=== PATIENT | female | born 1970 | race Caucasian/White ===

== ENCOUNTER 2019-07-31 14:33 | Emergency (ER) | payer MEDICAID ==
[~2019-07-31] VITALS: Ht 177.8 cm; Wt 130.0 kg
[~2019-07-31 14:33] MED LIST: BACL20TA PO; CALC-793 PO; FLUO20CA39 PO; FOLI-91 PO; FURO40TA4 PO; GABA-532 PO; GLIM4TAB4 PO; LISI-600 PO; LOVA20TA2 PO; METF500T PO; METO50TA7 PO; PANT40TA4 PO; TRAM50TA2 PO
[2019-07-31 14:37] VITALS: BP 137/73
[2019-07-31 15:25] LABS: BASOPHILS % (AUTO) 0.3 % (0-1); EOSINOPHILS # (AUTO) 0.1 X10'3 (0-0.9); EOSINOPHILS % (AUTO) 0.4 % (0-6); HEMATOCRIT 36.5 % (35.0-45.0); HEMOGLOBIN 11.6 g/dl (12.0-16.0); LYMPHOCYTES # (AUTO) 1.3 X10'3 (1.1-4.8); LYMPHOCYTES % (AUTO) 9.7 % (21-51); MEAN CORPUSCULAR HGB CONC 31.9 g/dL (33.0-36.5); MEAN CORPUSCULAR VOLUME 87.8 FL (78-98); MEAN PLATELET VOLUME 8.8 FL (7.4-10.4); MONOCYTES % (AUTO) 7.8 % (2-12); NEUTROPHILS # (AUTO) 10.6 X10'3 (1.8-7.7); NEUTROPHILS % (AUTO) 81.8 % (42-75); PLATELET COUNT 202 X10'3 (140-440); RED BLOOD COUNT 4.16 X10'6 (4.20-5.60); RED CELL DISTRIBUTION WIDTH 16.2 % (11.5-14.5)
[2019-07-31 15:40] LABS: ALANINE AMINOTRANSFERASE 19 U/L (12-78); ALBUMIN 2.5 G/DL (3.4-5.0); ALBUMIN/GLOBULIN RATIO 0.5 (1.1-1.5); ALKALINE PHOSPHATASE 109 IU/L (46-116); ANION GAP 11 (8-16); ASPARTATE AMINO TRANSFERASE 20 U/L (10-37); BILIRUBIN,TOTAL 0.7 MG/DL (0.1-1.0); BLOOD UREA NITROGEN 20 MG/DL (7-18); CALCIUM 8.5 MG/DL (8.5-10.1); CHLORIDE 98 MMOL/L (99-107); CREATININE 0.91 MG/DL (0.40-0.90); GLUCOSE 120 MG/DL (70-104); POTASSIUM 3.8 MMOL/L (3.5-5.1); SODIUM 135 MMOL/L (135-145); TOTAL CARBON DIOXIDE 26.5 MMOL/L (24-32); TOTAL PROTEIN 7.2 G/DL (6.4-8.2); eGFR 66 ML/MIN
[2019-07-31] MEDS ORDERED: CEPH500C5 PO (16:03)
[2019-07-31] MEDS ORDERED: SULF1TAB49 PO (16:03)
[2019-07-31] MEDS ORDERED: CefTRIAXone 2gm/D5W 50ml 50 ML IV ONE (16:05)
[2019-07-31] MEDS ORDERED: CefTRIAXone 1000mg IM Kit (w/lidocaine diluent) IM ONE (16:25)
== END 2019-07-31 17:18 | disposition home or self-care (01) ==
LOC: ER 14:34
DX: L03.116 Cellulitis of left lower limb (principal); E78.00 Pure hypercholesterolemia, unspecified; J44.9 Chronic obstructive pulmonary disease, unspecified; E11.9 Type 2 diabetes mellitus without complications; I11.0 Hypertensive heart disease with heart failure; I50.9 Heart failure, unspecified; Z98.890 Other specified postprocedural states; Z56.0 Unemployment, unspecified; Z88.0 Allergy status to penicillin; Z88.5 Allergy status to narcotic agent; Z79.899 Other long term (current) drug therapy
CPT/HCPCS: 36415; 71045; 80053; 83605; 84145; 85025; 87040; 93005; 93971; 96372; 99284; J0696

== ENCOUNTER 2019-08-17 14:34 | Emergency (ER) | payer MEDICAID ==
[~2019-08-17] VITALS: Ht 177.8 cm; Wt 13.0 kg
[~2019-08-17 14:34] MED LIST changes: +CEPH500C5 PO
--- NOTE | 2019-08-17 17:53 | NUR ---
ultrasound techs at the bedside at this time
[2019-08-17] MEDS ORDERED: DOXY100C43 PO (19:07)
[2019-08-17] MEDS ORDERED: CEPH500C5 PO (19:07)
[2019-08-17 19:28] VITALS: BP 107/82
== END 2019-08-17 19:34 | disposition home or self-care (01) ==
LOC: ER 14:34
DX: L03.116 Cellulitis of left lower limb (principal); E78.00 Pure hypercholesterolemia, unspecified; I11.0 Hypertensive heart disease with heart failure; I50.9 Heart failure, unspecified; J44.9 Chronic obstructive pulmonary disease, unspecified; F17.210 Nicotine dependence, cigarettes, uncomplicated; E11.40 Type 2 diabetes mellitus with diabetic neuropathy, unspecified; Z56.0 Unemployment, unspecified; Z98.890 Other specified postprocedural states; Z88.0 Allergy status to penicillin; Z88.5 Allergy status to narcotic agent; Z79.899 Other long term (current) drug therapy
CPT/HCPCS: 93922; 93926; 99284

== ENCOUNTER 2021-09-04 15:45 | Emergency (ER) | payer MEDICAID ==
[~2021-09-04] VITALS: Ht 177.8 cm; Wt 145.0 kg
[~2021-09-04 15:45] MED LIST changes: -CEPH500C5 PO; -GLIM4TAB4 PO; +GLIM4TAB7 PO; -LISI-600 PO; +LISI20TA28 PO; -PANT40TA4 PO; +PANT40TA54 PO
[2021-09-04] MEDS ORDERED: methylPREDNISolone sod succ 125mg/2ml vial IV ONE (15:55)
[2021-09-04] MEDS ORDERED: ipratropium/albuterol 3ml nebule NEB ONE (15:55)
[2021-09-04 16:47] LABS: BASOPHILS # (AUTO) 0.1 X10'3 (0-0.2); EOSINOPHILS # (AUTO) 0.1 X10'3 (0-0.9); LYMPHOCYTES # (AUTO) 1.2 X10'3 (1.1-4.8); LYMPHOCYTES % (AUTO) 17.4 % (21-51); MEAN PLATELET VOLUME 8.4 FL (7.4-10.4); MONOCYTES # (AUTO) 0.4 X10'3 (0-0.9); MONOCYTES % (AUTO) 5.7 % (2-12); NEUTROPHILS # (AUTO) 5.4 X10'3 (1.8-7.7); NEUTROPHILS % (AUTO) 74.9 % (42-75); PLATELET COUNT 190 X10'3 (140-440); WHITE BLOOD COUNT 7.2 X10'3 (4.5-11.0)
[2021-09-04 17:05] LABS: ALANINE AMINOTRANSFERASE 22 U/L (12-78); ALBUMIN/GLOBULIN RATIO 0.8 (1.1-1.5); ALKALINE PHOSPHATASE 94 IU/L (46-116); ANION GAP 4 (8-16); ASPARTATE AMINO TRANSFERASE 17 U/L (10-37); BILIRUBIN,TOTAL 0.5 MG/DL (0.1-1.0); BLOOD UREA NITROGEN 16 MG/DL (7-18); BUN/CREATININE RATIO 25.4 (6.6-38.0); CALCIUM 8.1 MG/DL (8.5-10.1); CHLORIDE 102 MMOL/L (99-107); CREATININE 0.63 MG/DL (0.40-0.90); GLUCOSE 123 MG/DL (70-104); POTASSIUM 4.8 MMOL/L (3.5-5.1); SODIUM 137 MMOL/L (135-145); TOTAL CARBON DIOXIDE 31.5 MMOL/L (24-32); TOTAL PROTEIN 6.8 G/DL (6.4-8.2); eGFR > 90 ML/MIN
[2021-09-04 17:29] LABS: HEMATOCRIT 33.5 % (35.0-45.0); HEMOGLOBIN 10.5 g/dl (12.0-16.0); RED BLOOD COUNT 4.72 X10'6 (4.20-5.60)
[2021-09-04 17:30] LABS: MEAN CORPUSCULAR HEMOGLOBIN 22.3 PG (27.0-31.0); MEAN CORPUSCULAR HGB CONC 31.4 g/dL (33.0-36.5); RED CELL DISTRIBUTION WIDTH 19.5 % (11.5-14.5)
[2021-09-04] MEDS ORDERED: furosemide 10 MG/1 ML 10ml inj IV ONE (17:35)
[2021-09-04] MEDS ORDERED: PRED10TA23 PO (17:39)
[2021-09-04] MEDS ORDERED: ALBU6.7H9 INH (17:39)
[2021-09-04] MEDS ORDERED: BUDE180A INH (17:39)
[2021-09-04] MEDS ORDERED: POTA-188 PO (17:57)
[2021-09-04] MEDS ORDERED: FURO-150 PO (17:57)
[2021-09-04] MEDS ORDERED: furosemide 20MG tablet PO ONE (18:00)
[2021-09-04 18:07] VITALS: BP 156/75
[2021-09-04 19:45] LABS: LARGE PLATELETS FEW; PLATELET ESTIMATE NORMAL
[2021-09-04 19:46] LABS: ANISOCYTOSIS 2+; MICROCYTOSIS 1+; POLYCHROMASIA 1+; STOMATOCYTES 1+
== END 2021-09-04 18:10 | disposition home or self-care (01) ==
LOC: ER 15:45
DX: J44.1 Chronic obstructive pulmonary disease with (acute) exacerbation (principal); I50.9 Heart failure, unspecified; I11.0 Hypertensive heart disease with heart failure; R06.02 Shortness of breath; M79.89 Other specified soft tissue disorders; E11.9 Type 2 diabetes mellitus without complications; Z56.0 Unemployment, unspecified; Z98.890 Other specified postprocedural states; Z88.5 Allergy status to narcotic agent; Z88.0 Allergy status to penicillin; Z79.899 Other long term (current) drug therapy
CPT/HCPCS: 36415; 71045; 80053; 83880; 85008; 85025; 93005; 94640; 96374; 99285; J2930; 94760

== ENCOUNTER 2021-10-17 15:44 | Inpatient (IN) | payer MEDICAID ==
[~2021-10-17] VITALS: Ht 180.3 cm; Wt 152.3 kg
[~2021-10-17 15:44] MED LIST changes: +ALBU6.7H9 INH; +BUDE180A INH
[2021-10-17 17:02] LABS: BASOPHILS # (AUTO) 0.1 X10'3 (0-0.2); BASOPHILS % (AUTO) 1.3 % (0-1); EOSINOPHILS # (AUTO) 0.1 X10'3 (0-0.9); EOSINOPHILS % (AUTO) 1.1 % (0-6); HEMATOCRIT 39.2 % (35.0-45.0); HEMOGLOBIN 11.6 g/dl (12.0-16.0); LYMPHOCYTES # (AUTO) 0.9 X10'3 (1.1-4.8); LYMPHOCYTES % (AUTO) 11.2 % (21-51); MEAN CORPUSCULAR HEMOGLOBIN 21.8 PG (27.0-31.0); MEAN CORPUSCULAR HGB CONC 29.5 g/dL (33.0-36.5); MEAN CORPUSCULAR VOLUME 73.9 FL (78-98); MEAN PLATELET VOLUME 8.7 FL (7.4-10.4); MONOCYTES # (AUTO) 0.4 X10'3 (0-0.9); MONOCYTES % (AUTO) 5.1 % (2-12); NEUTROPHILS # (AUTO) 6.5 X10'3 (1.8-7.7); NEUTROPHILS % (AUTO) 81.3 % (42-75); PLATELET COUNT 226 X10'3 (140-440); RED BLOOD COUNT 5.31 X10'6 (4.20-5.60)
[2021-10-17 17:18] LABS: ALANINE AMINOTRANSFERASE 26 U/L (12-78); ALBUMIN 3.5 G/DL (3.4-5.0); ALKALINE PHOSPHATASE 109 IU/L (46-116); ANION GAP 6 (8-16); ASPARTATE AMINO TRANSFERASE 15 U/L (10-37); BILIRUBIN,TOTAL 0.6 MG/DL (0.1-1.0); BLOOD UREA NITROGEN 8 MG/DL (7-18); BUN/CREATININE RATIO 11.1 (6.6-38.0); CALCIUM 8.6 MG/DL (8.5-10.1); CHLORIDE 100 MMOL/L (99-107); CREATININE 0.72 MG/DL (0.40-0.90); GLUCOSE 119 MG/DL (70-104); POTASSIUM 4.4 MMOL/L (3.5-5.1); SODIUM 138 MMOL/L (135-145); TOTAL CARBON DIOXIDE 31.9 MMOL/L (24-32); eGFR 86 ML/MIN
[2021-10-17 17:24] LABS: ANISOCYTOSIS 3+; ELLIPTOCYTES FEW; HYPOCHROMASIA 1+; MICROCYTOSIS 1+; PLATELET ESTIMATE NORMAL; POLYCHROMASIA 1+; TEAR DROP CELLS FEW
[2021-10-17] MEDS ORDERED: methylPREDNISolone sod succ 125mg/2ml vial IV ONE (23:30)
[2021-10-17] MEDS ORDERED: furosemide 40mg/4ml inj IV ONE (23:30)
[2021-10-17] MEDS ORDERED: ipratropium/albuterol 3ml nebule NEB ONE (23:30)
[2021-10-18] MEDS ORDERED: magnesium hydroxide 30ml (MOM) UD suspension PO PRN (03:50)
[2021-10-18] MEDS ORDERED: mag hydrox/Alum hydrox/simeth 30ml oral suspension PO PRN (03:50)
[2021-10-18] MEDS ORDERED: PERFLUTREN PROTEIN-A MICROSPHR (Optison) 0.22 MG/ML 3ML VIAL IV ONE (03:50)
[2021-10-18] MEDS ORDERED: magnesium 2GM in 50ml NS 50 ML IV PRN (03:50)
[2021-10-18] MEDS ORDERED: potassium CL 10mEq/100ml bag 100 ML IV PRN (03:50)
[2021-10-18] MEDS ORDERED: acetaminophen 325mg tablet PO PRN (03:50)
[2021-10-18] MEDS ORDERED: ondansetron/PF 4mg/2ml inj IV PRN (03:50)
[2021-10-18] MEDS ORDERED: magnesium 4gm in 100ml NS 100 ML IV PRN (03:50)
[2021-10-18] MEDS ORDERED: potassium Cl 20 mEq SR tablet PO PRN ×2 (03:50)
[2021-10-18] MEDS ORDERED: magnesium Cl slow-release 64mg tablet PO PRN (03:50)
[2021-10-18] MEDS ORDERED: POTA-188 PO (03:51)
[2021-10-18] MEDS ORDERED: DULO30CA52 PO (03:51)
[2021-10-18] MEDS ORDERED: FAMO20TA8 PO (03:51)
[2021-10-18] MEDS ORDERED: PREG100C55 PO (03:51)
[2021-10-18] MEDS ORDERED: ATOR20TA66 PO (03:51)
[2021-10-18] MEDS ORDERED: MESSAGE TO PHARMACY PO ONE (03:55)
[2021-10-18] MEDS ORDERED: glucagon, human recombinant 1mg kit SUBCUT PRN (03:55)
[2021-10-18] MEDS ORDERED: insulin Lispro (HumaLOG) vial - multi-dose SQ SCH (03:55)
[2021-10-18] MEDS ORDERED: dextrose ORAL solution 15 GM/59 ML bottle PO PRN ×2 (03:55)
[2021-10-18] MEDS ORDERED: dextrose 50%-water 50ml dispensing syringe IV PRN ×2 (03:55)
[2021-10-18] MEDS ORDERED: ALBU8.5H17 IH (03:58)
--- NOTE | 2021-10-18 06:30 | NUR ---
Report received from INGRID Christianson.
--- NOTE | 2021-10-18 06:40 | NUR ---
Patient assisted from commode to bed.
[2021-10-18] MEDS ORDERED: furosemide 40mg tablet PO SCH (08:00)
[2021-10-18] MEDS ORDERED: lisinopril 20mg tablet PO SCH (08:00)
[2021-10-18] MEDS ORDERED: famotidine 20mg tablet PO SCH (08:00)
[2021-10-18] MEDS: metoprolol succinate 25mg (24-HOUR) SR. Tablet PO SCH (08:55)
[2021-10-18] MEDS: pregabalin 25mg capsule PO SCH ×3 (08:55→20:52)
[2021-10-18] MEDS: docusate sod 100mg capsule PO SCH ×3 (08:55→20:52)
[2021-10-18] MEDS: baclofen 10mg tablet PO SCH ×3 (08:55→20:53)
[2021-10-18] MEDS: duloxetine 30mg CAPSULE.DR PO SCH (08:56)
[2021-10-18] MEDS: multivitamins, therapeutics tablet PO SCH (08:57)
[2021-10-18] MEDS: atorvastatin 20mg tablet PO SCH (08:57)
[2021-10-18] MEDS: heparin, porcine 5000 units/ml vial SQ SCH ×2 (08:57→20:52)
[2021-10-18] MEDS: budesonide 0.5mg/2ml UD nebule IH SCH ×2 (09:18→21:19)
[2021-10-18 09:25] LABS: MAGNESIUM 1.5 MG/DL (1.5-2.4); POTASSIUM 4.4 MMOL/L (3.5-5.1)
[2021-10-18 09:42] LABS: HEMOGLOBIN A1C 7.4 % (4.5-6.2)
[2021-10-18] MEDS: K and/or MAG REPLACEMENT MC SCH ×2 (10:00→20:00)
[2021-10-18] MEDS: furosemide 40mg/4ml inj IV SCH ×2 (10:00→20:51)
--- NOTE | 2021-10-18 11:00 | NUR ---
Assisted patient to bedside commode.
--- NOTE | 2021-10-18 12:50 | NUR ---
Patient assisted to bedside commode.
--- NOTE | 2021-10-18 15:41 | NUR ---
Patient in room ED 14. I have received report from armin QUINTERO at the ED and had the opportunity to ask questions and assume patient care.
[2021-10-18 20:00] VITALS: BP 145/65
[2021-10-18] MEDS ORDERED: insulin glargine (Lantus) pen - multi-dose SQ SCH (21:00)
[2021-10-18] MEDS: albuterol 2.5 MG/3 ML nebule NEB PRN (21:19)
[2021-10-19] VITALS: BP 123/59
[2021-10-19 06:19] LABS: BASOPHILS % (AUTO) 0.4 % (0-1); EOSINOPHILS % (AUTO) 0.6 % (0-6); HEMOGLOBIN 10.5 g/dl (12.0-16.0); LYMPHOCYTES # (AUTO) 1.3 X10'3 (1.1-4.8); LYMPHOCYTES % (AUTO) 18.5 % (21-51); MEAN CORPUSCULAR HEMOGLOBIN 21.9 PG (27.0-31.0); MEAN CORPUSCULAR HGB CONC 30.1 g/dL (33.0-36.5); MEAN CORPUSCULAR VOLUME 72.8 FL (78-98); MEAN PLATELET VOLUME 8.4 FL (7.4-10.4); MONOCYTES # (AUTO) 0.6 X10'3 (0-0.9); MONOCYTES % (AUTO) 8.4 % (2-12); NEUTROPHILS # (AUTO) 5.2 X10'3 (1.8-7.7); NEUTROPHILS % (AUTO) 72.1 % (42-75); PLATELET COUNT 215 X10'3 (140-440); RED CELL DISTRIBUTION WIDTH 20.9 % (11.5-14.5); WHITE BLOOD COUNT 7.3 X10'3 (4.5-11.0)
[2021-10-19 06:25] LABS: ALANINE AMINOTRANSFERASE 19 U/L (12-78); ALKALINE PHOSPHATASE 89 IU/L (46-116); ANION GAP 4 (8-16); ASPARTATE AMINO TRANSFERASE 12 U/L (10-37); BILIRUBIN,TOTAL 0.5 MG/DL (0.1-1.0); BLOOD UREA NITROGEN 16 MG/DL (7-18); CALCIUM 8.4 MG/DL (8.5-10.1); CHLORIDE 100 MMOL/L (99-107); CHOL/HDL RATIO 2.9 (0.00-4.99); CHOLESTEROL 129 MG/DL (0-200); GLUCOSE 135 MG/DL (70-104); HDL CHOLESTEROL 45 MG/DL (35-60); LDL CHOLESTEROL 62 MG/DL (50-100); POTASSIUM 3.2 MMOL/L (3.5-5.1); SODIUM 141 MMOL/L (135-145); TOTAL CARBON DIOXIDE 36.8 MMOL/L (24-32); TRIGLYCERIDES 132 MG/DL (20-135); eGFR 76 ML/MIN
--- NOTE | 2021-10-19 06:50 | NUR ---
Patient in room [facility]OM[facility] 360. I have received report from Flora RN Traveler and had the opportunity to ask questions and assume patient care.
[2021-10-19] MEDS: budesonide 0.5mg/2ml UD nebule IH SCH (07:58)
[2021-10-19] MEDS: albuterol 2.5 MG/3 ML nebule NEB PRN (07:58)
[2021-10-19 08:00] VITALS: BP 127/53
[2021-10-19] MEDS: furosemide 40mg/4ml inj IV SCH (08:44)
[2021-10-19] MEDS: duloxetine 30mg CAPSULE.DR PO SCH (08:45)
[2021-10-19] MEDS: atorvastatin 20mg tablet PO SCH (08:45)
[2021-10-19] MEDS: baclofen 10mg tablet PO SCH ×2 (08:45→14:54)
[2021-10-19] MEDS: multivitamins, therapeutics tablet PO SCH (08:45)
[2021-10-19] MEDS: pregabalin 25mg capsule PO SCH ×2 (08:45→14:55)
[2021-10-19] MEDS: metoprolol succinate 25mg (24-HOUR) SR. Tablet PO SCH (08:46)
[2021-10-19] MEDS: heparin, porcine 5000 units/ml vial SQ SCH (08:46)
[2021-10-19 09:07] LABS: ANISOCYTOSIS 3+; HYPOCHROMASIA 2+; MICROCYTOSIS 1+; PLATELET ESTIMATE NORMAL
[2021-10-19 09:08] LABS: ELLIPTOCYTES FEW; POLYCHROMASIA FEW; STOMATOCYTES FEW; TEAR DROP CELLS FEW
[2021-10-19 11:00] VITALS: BP 102/51
--- NOTE | 2021-10-19 11:43 | NUR ---
Diabetes consult: Noted A1C 7.4 pt states she has been diabetic for a while. Provided pt w/ written and verbal DM ed w/ RD contact info. Pt receptive of information. Addendum: 10/19/21 at [address] Amended: Links added.
[2021-10-19] MEDS ORDERED: FURO40TA4 PO (13:05)
--- NOTE | 2021-10-19 15:15 | NUR ---
Pt is A & o x4 and in no apparent distress. Pt and verbalized understanding of all DC orders. pt educated about her DM and breathing exercises. Pt did not qualify for home O2. her stats are 92-94 in RA. Pt drops to 89 when ambulating but quickly recovers back to the mid 90's. Pt is not symptomatic and does not feel SOB. Pt states she feels ready to go home. Pt's IV cath removed intact. pt got dressed and wheeled to the front where her took her home.
== END 2021-10-19 15:15 | disposition home or self-care (01) | DRG 194 ==
LOC: ER 15:45 → ED HOLD 10-18 03:53 → SUR 3N 10-18 16:20
PROVIDERS: ADMIT Internal Medicine; ATTEND Internal Medicine
DX: I11.0 Hypertensive heart disease with heart failure (principal); E11.40 Type 2 diabetes mellitus with diabetic neuropathy, unspecified; Z79.01 Long term (current) use of anticoagulants; E03.9 Hypothyroidism, unspecified; E66.01 Morbid (severe) obesity due to excess calories; D50.9 Iron deficiency anemia, unspecified; Z20.822 Contact with and (suspected) exposure to COVID-19; I50.813 Acute on chronic right heart failure; E78.00 Pure hypercholesterolemia, unspecified; E78.5 Hyperlipidemia, unspecified; F32.A Depression, unspecified; F41.9 Anxiety disorder, unspecified; G47.33 Obstructive sleep apnea (adult) (pediatric); G89.29 Other chronic pain; K21.9 Gastro-esophageal reflux disease without esophagitis; M54.9 Dorsalgia, unspecified; F17.200 Nicotine dependence, unspecified, uncomplicated; J43.9 Emphysema, unspecified; R09.02 Hypoxemia; Z68.42 Body mass index [BMI] 45.0-49.9, adult; Z79.51 Long term (current) use of inhaled steroids; Z79.84 Long term (current) use of oral hypoglycemic drugs; Z79.899 Other long term (current) drug therapy; Z56.0 Unemployment, unspecified; Z88.0 Allergy status to penicillin; Z88.5 Allergy status to narcotic agent
CPT/HCPCS: 36415; 71045; 80053; 80061; 82948; 83036; 83735; 83880; 84132; 84484; 85008; 85025; 87081; 87635; 93005; 93306; 94640; 94760; 99285; G0378; J1644; J1815; J1940; J2930

== ENCOUNTER 2022-06-18 14:08 | Inpatient (IN) | payer MEDICAID ==
[~2022-06-18] VITALS: Ht 177.8 cm; Wt 134.6 kg
[~2022-06-18 14:08] MED LIST changes: -ALBU6.7H9 INH; +ALBU8.5H17 IH; +ATOR20TA66 PO; -CALC-793 PO; +DULO30CA52 PO; +FAMO20TA8 PO; -FLUO20CA39 PO; -GABA-532 PO; -GLIM4TAB7 PO; -LOVA20TA2 PO; -PANT40TA54 PO; +POTA-188 PO; +PREG100C55 PO; -TRAM50TA2 PO
--- NOTE | 2022-06-18 15:24 | NUR ---
PT PLACED ON 2 LTR NC PER SPO2 78% SPO2 IMPROVED TO 87% ON 2 LTRS TITRATED O2 TO 4 LTRS
[2022-06-18 17:41] LABS: BASOPHILS # (AUTO) 0.1 X10'3 (0-0.2); BASOPHILS % (AUTO) 1.1 % (0-1); EOSINOPHILS # (AUTO) 0.6 X10'3 (0-0.9); EOSINOPHILS % (AUTO) 5.3 % (0-6); LYMPHOCYTES # (AUTO) 1.2 X10'3 (1.1-4.8); LYMPHOCYTES % (AUTO) 11.4 % (21-51); MEAN PLATELET VOLUME 8.5 FL (7.4-10.4); MONOCYTES # (AUTO) 0.7 X10'3 (0-0.9); MONOCYTES % (AUTO) 6.8 % (2-12); NEUTROPHILS # (AUTO) 8.3 X10'3 (1.8-7.7); NEUTROPHILS % (AUTO) 75.4 % (42-75); PLATELET COUNT 206 X10'3 (140-440)
[2022-06-18 18:00] LABS: RED BLOOD COUNT 4.96 X10'6 (4.20-5.60)
[2022-06-18 18:01] LABS: ALANINE AMINOTRANSFERASE 24 U/L (12-78); ALBUMIN 3.1 G/DL (3.4-5.0); ALBUMIN/GLOBULIN RATIO 0.9 (1.1-1.5); ALKALINE PHOSPHATASE 112 IU/L (46-116); ANION GAP 5 (8-16); ASPARTATE AMINO TRANSFERASE 16 U/L (10-37); BILIRUBIN,TOTAL 0.3 MG/DL (0.1-1.0); BLOOD UREA NITROGEN 39 MG/DL (7-18); BUN/CREATININE RATIO 31.2 (6.6-38.0); CALCIUM 8.3 MG/DL (8.5-10.1); CHLORIDE 102 MMOL/L (99-107); CREATININE 1.25 MG/DL (0.40-0.90); GLUCOSE 126 MG/DL (70-104); MEAN CORPUSCULAR HEMOGLOBIN 24.1 PG (27.0-31.0); MEAN CORPUSCULAR HGB CONC 31.5 g/dL (33.0-36.5); MEAN CORPUSCULAR VOLUME 76.6 FL (78-98); POTASSIUM 5.5 MMOL/L (3.5-5.1); RED CELL DISTRIBUTION WIDTH 20.4 % (11.5-14.5); SODIUM 139 MMOL/L (135-145); TOTAL PROTEIN 6.5 G/DL (6.4-8.2); eGFR 45 ML/MIN
[2022-06-18 18:08] LABS: MAGNESIUM 1.9 MG/DL (1.5-2.4)
[2022-06-18] MEDS ORDERED: furosemide 10 MG/1 ML 10ml inj IV ONE (18:20)
[2022-06-18] MEDS ORDERED: acetaminophen 325mg tablet PO PRN ×2 (19:35)
[2022-06-18] MEDS ORDERED: magnesium 2GM in 50ml NS 50 ML IV PRN (19:35)
[2022-06-18] MEDS ORDERED: potassium CL 10mEq/100ml bag 100 ML IV PRN (19:35)
[2022-06-18] MEDS ORDERED: POTASSIUM BICARB 20meq eff tab 20 MEQ TABLET.EFF PO PRN ×2 (19:35)
[2022-06-18] MEDS ORDERED: albuterol 2.5 MG/3 ML nebule NEB PRN (19:35)
[2022-06-18] MEDS ORDERED: magnesium Cl slow-release 64mg tablet PO PRN (19:35)
[2022-06-18] MEDS ORDERED: magnesium 4gm in 100ml NS 100 ML IV PRN (19:35)
[2022-06-18] MEDS ORDERED: ondansetron/PF 4mg/2ml inj IV PRN (19:35)
[2022-06-18] MEDS ORDERED: DEXTROSE 15 GM of carb/4 tabs (each vial/BOTTLE has 4 tablets) PO PRN ×2 (19:40)
[2022-06-18] MEDS ORDERED: dextrose 50%-water 50ml dispensing syringe IV PRN ×2 (19:40)
[2022-06-18] MEDS ORDERED: MESSAGE TO PHARMACY PO ONE (19:40)
[2022-06-18] MEDS ORDERED: glucagon, human recombinant 1mg kit SUBCUT PRN (19:40)
[2022-06-18] MEDS: K and/or MAG REPLACEMENT MC SCH (19:56)
[2022-06-18] MEDS ORDERED: furosemide 40mg/4ml inj IV SCH (20:00)
--- NOTE | 2022-06-18 20:08 | NUR ---
Rafael phone number - [phone]
[2022-06-18] MEDS: heparin, porcine 5000 units/ml vial SQ SCH (20:40)
[2022-06-18] MEDS ORDERED: temazepam 15mg capsule PO PRN (21:00)
[2022-06-18] MEDS: insulin glargine (Lantus) pen - multi-dose SQ SCH (21:00)
[2022-06-18] MEDS ORDERED: sodium polystyrene sulfonate 15gm/60ml oral suspension PO ONE (21:35)
[2022-06-18] MEDS ORDERED: calcium gluconate inj. 1 GM in normal saline 100ml IV soln 100 ML IV ONE (21:35)
--- NOTE | 2022-06-18 22:03 | NUR ---
waiting for calcium gluconate from [facility].
[2022-06-18] MEDS ORDERED: calcium gluconate inj. 1 GM in normal saline 100ml IV soln 90 ML IV ONE (22:05)
[2022-06-19] MEDS ORDERED: furosemide 40mg/4ml inj IV SCH (08:00)
[2022-06-19] MEDS: K and/or MAG REPLACEMENT MC SCH ×2 (08:00→20:00)
[2022-06-19] MEDS: heparin, porcine 5000 units/ml vial SQ SCH ×2 (08:00→20:34)
[2022-06-19 08:43] LABS: BASOPHILS # (AUTO) 0.1 X10'3 (0-0.2); BASOPHILS % (AUTO) 1.1 % (0-1); EOSINOPHILS # (AUTO) 0.6 X10'3 (0-0.9); EOSINOPHILS % (AUTO) 6.2 % (0-6); HEMATOCRIT 40.6 % (35.0-45.0); HEMOGLOBIN 12.1 g/dl (12.0-16.0); LYMPHOCYTES # (AUTO) 1.1 X10'3 (1.1-4.8); LYMPHOCYTES % (AUTO) 11.3 % (21-51); MEAN CORPUSCULAR HEMOGLOBIN 23.4 PG (27.0-31.0); MEAN CORPUSCULAR HGB CONC 29.8 g/dL (33.0-36.5); MEAN CORPUSCULAR VOLUME 78.7 FL (78-98); MEAN PLATELET VOLUME 8.8 FL (7.4-10.4); MONOCYTES # (AUTO) 0.6 X10'3 (0-0.9); MONOCYTES % (AUTO) 6.3 % (2-12); NEUTROPHILS # (AUTO) 7.4 X10'3 (1.8-7.7); NEUTROPHILS % (AUTO) 75.1 % (42-75); PLATELET COUNT 208 X10'3 (140-440); RED BLOOD COUNT 5.16 X10'6 (4.20-5.60); RED CELL DISTRIBUTION WIDTH 21.5 % (11.5-14.5); WHITE BLOOD COUNT 9.8 X10'3 (4.5-11.0)
[2022-06-19] MEDS ORDERED: FURO40TA4 PO (08:45)
[2022-06-19] MEDS ORDERED: BUSP30TA2 PO (08:45)
[2022-06-19] MEDS ORDERED: DESI25TA PO (08:45)
[2022-06-19] MEDS ORDERED: FLUO-100 PO (08:45)
[2022-06-19] MEDS ORDERED: POTA-207 PO (08:45)
[2022-06-19] MEDS ORDERED: LEVO50TA8 PO (08:45)
[2022-06-19] MEDS ORDERED: TIOT18CA3 INH (08:45)
[2022-06-19 09:19] LABS: ALANINE AMINOTRANSFERASE 22 U/L (12-78); ALBUMIN 3.1 G/DL (3.4-5.0); ALBUMIN/GLOBULIN RATIO 0.9 (1.1-1.5); ALKALINE PHOSPHATASE 105 IU/L (46-116); ANION GAP 5 (8-16); ASPARTATE AMINO TRANSFERASE 13 U/L (10-37); BILIRUBIN,TOTAL 0.4 MG/DL (0.1-1.0); BLOOD UREA NITROGEN 32 MG/DL (7-18); BUN/CREATININE RATIO 35.6 (6.6-38.0); CHLORIDE 106 MMOL/L (99-107); GLUCOSE 146 MG/DL (70-104); POTASSIUM 4.7 MMOL/L (3.5-5.1); SODIUM 145 MMOL/L (135-145); TOTAL CARBON DIOXIDE 34.3 MMOL/L (24-32); TOTAL PROTEIN 6.4 G/DL (6.4-8.2); eGFR 66 ML/MIN
[2022-06-19 15:27] VITALS: BP 140/72
--- NOTE | 2022-06-19 16:47 | NUR ---
PAGED DR DEEPTHI CABRAL; PAGER ID: [phone] MESSAGE: DELANEY ZEE. MED REC NEEDS TO BE ADDRESSED. AND I THINK SHE COULD USE SOME NYSTATIN POWDER. THANKS JENNIFER TELE [phone]
[2022-06-19] MEDS ORDERED: albuterol 2.5 MG/3 ML nebule NEB PRN (17:10)
--- NOTE | 2022-06-19 17:30 | NUR ---
Patient in room PCU 3016. I have received report from INGRID Mcguire and had the opportunity to ask questions and assume patient care.
--- NOTE | 2022-06-19 17:39 | NUR ---
Problems reprioritized. Patient report given, questions answered & plan of care reviewed with GURMEET RN.
[2022-06-19 18:00] VITALS: BP 162/81
[2022-06-19] MEDS ORDERED: benzonatate 100mg capsule PO PRN (18:10)
--- NOTE | 2022-06-19 18:40 | NUR ---
Problems reprioritized. Patient report given, questions answered & plan of care reviewed with MONICA Benitez.
[2022-06-19] MEDS ORDERED: benzocaine/menthol oral lozeng 1 EACH BOX MM PRN (19:00)
--- NOTE | 2022-06-19 19:00 | NUR ---
Patient in room PCU 3016. I have received report from Yaneth QUINTERO and had the opportunity to ask questions and assume patient care.
[2022-06-19] MEDS ORDERED: HALLS - SOOTHE MENTHOL 1.8 MG cough drop LOZENGE MM PRN (19:12)
[2022-06-19 19:37] LABS: HEMOGLOBIN A1C 6.9 % (4.5-6.2)
[2022-06-19] MEDS ORDERED: DESIPRAMINE PO SCH (20:00)
[2022-06-19] MEDS: insulin Lispro (HumaLOG) vial - multi-dose SQ SCH (20:28)
[2022-06-19] MEDS: ipratropium/albuterol 3ml nebule IH SCH (20:30)
[2022-06-19] MEDS: busPIRone 15mg tablet PO SCH (20:32)
[2022-06-19] MEDS: pregabalin 75mg capsule PO SCH (20:33)
[2022-06-19] MEDS: famotidine 20mg tablet PO SCH (20:34)
[2022-06-19] MEDS: nystatin 15 GM powder TP SCH (20:34)
[2022-06-19] MEDS: pregabalin 25mg capsule PO SCH (20:36)
[2022-06-19] MEDS ORDERED: nystatin 15 GM powder TP SCH (21:00)
[2022-06-19 22:00] VITALS: BP 96/70
[2022-06-19] MEDS: insulin glargine (Lantus) pen - multi-dose SQ SCH (23:23)
[2022-06-20] MEDS: ipratropium/albuterol 3ml nebule IH SCH ×4 (03:12→19:41)
[2022-06-20 06:00] VITALS: BP 158/81
--- NOTE | 2022-06-20 06:20 | NUR ---
Patient in room PCU 3016. I have received report from MONICA Benitez and had the opportunity to ask questions and assume patient care.
--- NOTE | 2022-06-20 06:30 | NUR ---
Problems reprioritized. Patient report given, questions answered & plan of care reviewed with Yaneth RN.
[2022-06-20 07:44] LABS: BASOPHILS # (AUTO) 0.1 X10'3 (0-0.2); BASOPHILS % (AUTO) 0.9 % (0-1); EOSINOPHILS # (AUTO) 0.3 X10'3 (0-0.9); EOSINOPHILS % (AUTO) 3.1 % (0-6); HEMATOCRIT 37.9 % (35.0-45.0); HEMOGLOBIN 11.1 g/dl (12.0-16.0); LYMPHOCYTES # (AUTO) 0.7 X10'3 (1.1-4.8); LYMPHOCYTES % (AUTO) 9.1 % (21-51); MEAN CORPUSCULAR HGB CONC 29.3 g/dL (33.0-36.5); MEAN CORPUSCULAR VOLUME 78.6 FL (78-98); MEAN PLATELET VOLUME 8.7 FL (7.4-10.4); MONOCYTES # (AUTO) 0.5 X10'3 (0-0.9); MONOCYTES % (AUTO) 6.2 % (2-12); NEUTROPHILS # (AUTO) 6.5 X10'3 (1.8-7.7); NEUTROPHILS % (AUTO) 80.7 % (42-75); PLATELET COUNT 180 X10'3 (140-440); RED BLOOD COUNT 4.83 X10'6 (4.20-5.60); WHITE BLOOD COUNT 8.1 X10'3 (4.5-11.0)
[2022-06-20] MEDS ORDERED: lisinopril 20mg tablet PO SCH (08:00)
[2022-06-20] MEDS: K and/or MAG REPLACEMENT MC SCH ×2 (08:00→20:00)
[2022-06-20 08:14] LABS: ALANINE AMINOTRANSFERASE 18 U/L (12-78); ALBUMIN 2.9 G/DL (3.4-5.0); ALBUMIN/GLOBULIN RATIO 0.9 (1.1-1.5); ALKALINE PHOSPHATASE 98 IU/L (46-116); ANION GAP 8 (8-16); ASPARTATE AMINO TRANSFERASE 13 U/L (10-37); BILIRUBIN,TOTAL 0.5 MG/DL (0.1-1.0); BLOOD UREA NITROGEN 16 MG/DL (7-18); BUN/CREATININE RATIO 28.1 (6.6-38.0); CALCIUM 8.4 MG/DL (8.5-10.1); CHLORIDE 100 MMOL/L (99-107); CREATININE 0.57 MG/DL (0.40-0.90); GLUCOSE 153 MG/DL (70-104); SODIUM 142 MMOL/L (135-145); TOTAL CARBON DIOXIDE 34.4 MMOL/L (24-32); TOTAL PROTEIN 6.1 G/DL (6.4-8.2); eGFR > 90 ML/MIN
--- NOTE | 2022-06-20 10:08 | NUR ---
Malnutrition consult: Pt reports wt loss with decreased appetite per malnutrition risk screen with RN. Unfortunately no reliable wt hx in EMR. Current scaled wt is 197% IBW. Pt on a heart healthy CHO controlled diet, documented with 75% PO intake of first meal. Per EMR pt with no decrease in muscle strength or edema and pt appears well developed well nourished per physician note. Pt currently lacks a minimum of two criteria for malnutrition. Will continue to follow. Addendum: 06/20/22 at [address] Amended: Links added.
[2022-06-20 11:00] VITALS: BP 150/56
[2022-06-20] MEDS: atorvastatin 20mg tablet PO SCH (11:27)
[2022-06-20] MEDS: pregabalin 75mg capsule PO SCH ×3 (11:28→20:22)
[2022-06-20] MEDS: pregabalin 25mg capsule PO SCH ×3 (11:28→20:22)
[2022-06-20] MEDS: furosemide 40mg tablet PO SCH (11:29)
[2022-06-20] MEDS: metoprolol succinate 25mg (24-HOUR) SR. Tablet PO SCH (11:29)
[2022-06-20] MEDS: levoTHYROXINE 25mcg tablet PO SCH (11:29)
[2022-06-20] MEDS: busPIRone 15mg tablet PO SCH ×2 (11:29→20:22)
[2022-06-20] MEDS: famotidine 20mg tablet PO SCH ×2 (11:30→20:22)
[2022-06-20] MEDS: baclofen 10mg tablet PO PRN (11:30)
[2022-06-20] MEDS: duloxetine 30mg CAPSULE.DR PO SCH (11:30)
[2022-06-20] MEDS: nystatin 15 GM powder TP SCH ×2 (11:30→13:39)
[2022-06-20] MEDS: heparin, porcine 5000 units/ml vial SQ SCH ×2 (11:30→20:23)
[2022-06-20 12:04] VITALS: BP 150/56
[2022-06-20] MEDS: insulin Lispro (HumaLOG) vial - multi-dose SQ SCH ×2 (13:44→20:27)
[2022-06-20 15:00] VITALS: BP 128/62
[2022-06-20 18:00] VITALS: BP 134/59
--- NOTE | 2022-06-20 18:40 | NUR ---
Problems reprioritized. Patient report given, questions answered & plan of care reviewed with INGRID Cornejo.
--- NOTE | 2022-06-20 19:18 | NUR ---
Patient in room U 3016. I have received report from INGRID ELVI and had the opportunity to ask questions and assume patient care. Addendum: 06/20/22 at 1918 by Chantal Ureña RN Amended: Links added.
[2022-06-20 20:36] LABS: COLOR,URINE YELLOW (Yellow); GLUCOSE, URINE NEGATIVE (Neg); KETONES,URINE NEGATIVE (Neg); LEUKOCYTE ESTERASE ,URINE NEGATIVE (Neg); NITRITES, URINE NEGATIVE (Neg); OCCULT BLOOD,URINE NEGATIVE (Neg); PH,URINE 5.5 (4.8-8.0); PROTEIN,URINE NEGATIVE (Neg); UROBILINOGEN,URINE 0.2 E.U/dL (0.2-1.0)
[2022-06-20 20:41] LABS: UA COLLECTION TYPE STRAIGHT CATH
[2022-06-20 20:43] LABS: CLARITY,URINE SLIGHTLY CLOUDY (Clear)
[2022-06-20 20:45] LABS: URINE AMPHETAMINE SCREEN NEGATIVE (Neg); URINE BARBITUATE SCREEN NEGATIVE (Neg); URINE BENZODIAZEPINES SCREEN POSITIVE (Neg); URINE CANNABINOID SCREEN NEGATIVE (Neg); URINE COCAINE SCREEN NEGATIVE (Neg); URINE METHADONE SCREEN NEGATIVE (Neg); URINE OPIATE SCREEN POSITIVE (Neg); URINE PHENCYCLIDINE SCREEN NEGATIVE (Neg)
[2022-06-20 20:46] LABS: BACTERIA,URINE 1+ /HPF (Neg); RBC,URINE NONE SEEN /HPF (0-2); WBC,URINE 0-4 /HPF (0-4)
[2022-06-20 20:47] LABS: AMORPHOUS URATES 1+; MUCUS STRANDS FEW /LPF (Neg); SQUAMOUS EPITHELIAL CELL,UR MANY /LPF (FEW)
[2022-06-20] MEDS: insulin glargine (Lantus) pen - multi-dose SQ SCH (21:56)
[2022-06-20 22:00] VITALS: BP 120/60
[2022-06-21 02:00] VITALS: BP 124/53
[2022-06-21] MEDS: ipratropium/albuterol 3ml nebule IH SCH ×4 (02:31→20:35)
[2022-06-21 06:00] VITALS: BP 145/49
--- NOTE | 2022-06-21 06:30 | NUR ---
Patient in room PCU 3016. I have received report from INGRID Cornejo and had the opportunity to ask questions and assume patient care.
--- NOTE | 2022-06-21 06:49 | NUR ---
Problems reprioritized. Patient report given, questions answered & plan of care reviewed with INGRID LEVI. Addendum: 06/21/22 at 0650 by Chantal Ureña RN Amended: Links added.
[2022-06-21] MEDS: duloxetine 30mg CAPSULE.DR PO SCH (09:02)
[2022-06-21] MEDS: atorvastatin 20mg tablet PO SCH (09:02)
[2022-06-21] MEDS: pregabalin 75mg capsule PO SCH ×3 (09:02→21:22)
[2022-06-21] MEDS: pregabalin 25mg capsule PO SCH ×3 (09:02→21:22)
[2022-06-21] MEDS: furosemide 40mg tablet PO SCH (09:02)
[2022-06-21] MEDS: famotidine 20mg tablet PO SCH ×2 (09:03→19:58)
[2022-06-21] MEDS: baclofen 10mg tablet PO PRN ×2 (09:03→18:12)
[2022-06-21] MEDS: metoprolol succinate 25mg (24-HOUR) SR. Tablet PO SCH (09:03)
[2022-06-21] MEDS: busPIRone 15mg tablet PO SCH ×2 (09:03→19:58)
[2022-06-21] MEDS: levoTHYROXINE 25mcg tablet PO SCH (09:05)
[2022-06-21] MEDS: heparin, porcine 5000 units/ml vial SQ SCH ×2 (09:07→19:57)
[2022-06-21] MEDS: nystatin 15 GM powder TP SCH ×2 (09:07→19:56)
[2022-06-21 09:08] LABS: BASOPHILS # (AUTO) 0.1 X10'3 (0-0.2); BASOPHILS % (AUTO) 1.1 % (0-1); EOSINOPHILS # (AUTO) 0.3 X10'3 (0-0.9); EOSINOPHILS % (AUTO) 4.3 % (0-6); HEMOGLOBIN 11.7 g/dl (12.0-16.0); LYMPHOCYTES # (AUTO) 1.5 X10'3 (1.1-4.8); LYMPHOCYTES % (AUTO) 18.2 % (21-51); MEAN PLATELET VOLUME 8.5 FL (7.4-10.4); MONOCYTES # (AUTO) 0.5 X10'3 (0-0.9); MONOCYTES % (AUTO) 6.5 % (2-12); NEUTROPHILS # (AUTO) 5.7 X10'3 (1.8-7.7); NEUTROPHILS % (AUTO) 69.9 % (42-75); PLATELET COUNT 198 X10'3 (140-440); WHITE BLOOD COUNT 8.1 X10'3 (4.5-11.0)
[2022-06-21 09:22] LABS: ALANINE AMINOTRANSFERASE 16 U/L (12-78); ALBUMIN/GLOBULIN RATIO 0.9 (1.1-1.5); ALKALINE PHOSPHATASE 97 IU/L (46-116); ANION GAP 7 (8-16); ASPARTATE AMINO TRANSFERASE 15 U/L (10-37); BILIRUBIN,TOTAL 0.5 MG/DL (0.1-1.0); BLOOD UREA NITROGEN 10 MG/DL (7-18); BUN/CREATININE RATIO 17.2 (6.6-38.0); CALCIUM 8.5 MG/DL (8.5-10.1); CHLORIDE 99 MMOL/L (99-107); CREATININE 0.58 MG/DL (0.40-0.90); GLUCOSE 118 MG/DL (70-104); POTASSIUM 4.2 MMOL/L (3.5-5.1); SODIUM 141 MMOL/L (135-145); TOTAL CARBON DIOXIDE 34.9 MMOL/L (24-32); TOTAL PROTEIN 6.3 G/DL (6.4-8.2); eGFR > 90 ML/MIN
[2022-06-21] MEDS: K and/or MAG REPLACEMENT MC SCH ×2 (09:35→20:00)
[2022-06-21 09:56] LABS: HEMATOCRIT 37.8 % (35.0-45.0); MEAN CORPUSCULAR VOLUME 76.5 FL (78-98); RED BLOOD COUNT 4.94 X10'6 (4.20-5.60)
[2022-06-21 09:57] LABS: MEAN CORPUSCULAR HEMOGLOBIN 23.6 PG (27.0-31.0); MEAN CORPUSCULAR HGB CONC 30.9 g/dL (33.0-36.5); RED CELL DISTRIBUTION WIDTH 20.6 % (11.5-14.5)
[2022-06-21] MEDS: insulin Lispro (HumaLOG) vial - multi-dose SQ SCH ×3 (10:29→19:55)
[2022-06-21 10:34] LABS: ANISOCYTOSIS 3+; ELLIPTOCYTES FEW; HYPOCHROMASIA 1+; MICROCYTOSIS 1+; PLATELET ESTIMATE NORMAL; POLYCHROMASIA FEW; STOMATOCYTES FEW; TEAR DROP CELLS FEW
[2022-06-21 11:00] VITALS: BP 140/74
[2022-06-21 15:00] VITALS: BP 129/59
[2022-06-21 18:00] VITALS: BP 141/59
--- NOTE | 2022-06-21 18:39 | NUR ---
Patient in room U 3016. I have received report from INGRID LEVI and had the opportunity to ask questions and assume patient care. Addendum: 06/21/22 at 1840 by Chantal Ureña RN Amended: Links added.
--- NOTE | 2022-06-21 18:40 | NUR ---
Problems reprioritized. Patient report given, questions answered & plan of care reviewed with INGRID Cornejo.
[2022-06-21] MEDS: insulin glargine (Lantus) pen - multi-dose SQ SCH (21:29)
[2022-06-21 22:07] VITALS: BP 148/67
[2022-06-22 02:00] VITALS: BP 140/69
--- NOTE | 2022-06-22 06:22 | NUR ---
Problems reprioritized. Patient report given, questions answered & plan of care reviewed with Norm Hutchison. Addendum: 06/22/22 at 0623 by Chantal Ureña RN Amended: Links added.
[2022-06-22 06:51] LABS: BASOPHILS # (AUTO) 0.1 X10'3 (0-0.2); EOSINOPHILS # (AUTO) 0.3 X10'3 (0-0.9); EOSINOPHILS % (AUTO) 3.9 % (0-6); HEMOGLOBIN 11.6 g/dl (12.0-16.0); LYMPHOCYTES # (AUTO) 1.3 X10'3 (1.1-4.8); LYMPHOCYTES % (AUTO) 15.2 % (21-51); MEAN PLATELET VOLUME 8.6 FL (7.4-10.4); MONOCYTES # (AUTO) 0.7 X10'3 (0-0.9); MONOCYTES % (AUTO) 8.2 % (2-12); NEUTROPHILS % (AUTO) 71.7 % (42-75); PLATELET COUNT 189 X10'3 (140-440); RED BLOOD COUNT 5.11 X10'6 (4.20-5.60); WHITE BLOOD COUNT 8.4 X10'3 (4.5-11.0)
[2022-06-22 07:08] LABS: ALANINE AMINOTRANSFERASE 17 U/L (12-78); ALBUMIN/GLOBULIN RATIO 0.9 (1.1-1.5); ALKALINE PHOSPHATASE 92 IU/L (46-116); ANION GAP 2 (8-16); ASPARTATE AMINO TRANSFERASE 15 U/L (10-37); BILIRUBIN,TOTAL 0.6 MG/DL (0.1-1.0); BLOOD UREA NITROGEN 11 MG/DL (7-18); BUN/CREATININE RATIO 18.3 (6.6-38.0); CALCIUM 8.2 MG/DL (8.5-10.1); CHLORIDE 101 MMOL/L (99-107); GLUCOSE 109 MG/DL (70-104); POTASSIUM 4.1 MMOL/L (3.5-5.1); SODIUM 139 MMOL/L (135-145); TOTAL CARBON DIOXIDE 36.1 MMOL/L (24-32); TOTAL PROTEIN 6.2 G/DL (6.4-8.2); eGFR > 90 ML/MIN
[2022-06-22 07:40] VITALS: BP 130/69
[2022-06-22 07:50] LABS: MEAN CORPUSCULAR HEMOGLOBIN 23.6 PG (27.0-31.0)
[2022-06-22 07:51] LABS: MEAN CORPUSCULAR HGB CONC 31.4 g/dL (33.0-36.5)
[2022-06-22] MEDS: nystatin 15 GM powder TP SCH (08:00)
[2022-06-22] MEDS: K and/or MAG REPLACEMENT MC SCH (08:00)
[2022-06-22] MEDS: ipratropium/albuterol 3ml nebule IH SCH ×2 (08:24→15:00)
[2022-06-22] MEDS: pregabalin 75mg capsule PO SCH ×2 (09:08→13:09)
[2022-06-22] MEDS: levoTHYROXINE 25mcg tablet PO SCH (09:09)
[2022-06-22] MEDS: famotidine 20mg tablet PO SCH (09:09)
[2022-06-22] MEDS: pregabalin 25mg capsule PO SCH ×2 (09:09→13:10)
[2022-06-22] MEDS: furosemide 40mg tablet PO SCH (09:09)
[2022-06-22] MEDS: duloxetine 30mg CAPSULE.DR PO SCH (09:09)
[2022-06-22] MEDS: metoprolol succinate 25mg (24-HOUR) SR. Tablet PO SCH (09:09)
[2022-06-22] MEDS: busPIRone 15mg tablet PO SCH (09:09)
[2022-06-22] MEDS: atorvastatin 20mg tablet PO SCH (09:09)
[2022-06-22] MEDS: heparin, porcine 5000 units/ml vial SQ SCH (09:10)
--- NOTE | 2022-06-22 09:11 | NUR ---
Initial: Pt admitted w/ acute on chronic systolic CHF per EMR. Currently on Carb control/Heart Healthy diet w/ mostly 100% intake of meals recently likely close to meeting est needs at this time. LBM 06/20. Will continue to monitor and make recommendations as appropriate. Recs; 1. Continue Carb control/Heart healthy diet as tolerated 2. Double protein WB for satiety 3. Bowel care per rx 4. Weekly wts Addendum: 06/22/22 at [address] Amended: Links added.
[2022-06-22] MEDS: insulin Lispro (HumaLOG) vial - multi-dose SQ SCH (09:15)
--- NOTE | 2022-06-22 10:30 | NUR ---
PAGER ID: [phone] MESSAGE: [phone] Lyubov Lan: patient does not qualify for home o2. saturation stayed >90% while ambulating. thanks, kateryna [id number]
[2022-06-22 12:57] VITALS: BP 150/63
[2022-06-22] MEDS ORDERED: NYSPWD TP (13:42)
[2022-06-22] MEDS ORDERED: baclofen 10mg tablet PO PRN (13:45)
--- NOTE | 2022-06-22 14:14 | NUR ---
Patient stable and appropriate for discharge home. IV removed, monitoring engineer removed. All discharge instructions and education given and reviewed with patient, all questions answered.
[2022-06-22] MEDS ORDERED: metFORMIN 500mg tablet PO SCH (17:00)
[2022-06-23] MEDS ORDERED: FLUoxetine 20mg capsule PO SCH (08:00)
== END 2022-06-22 14:16 | disposition home or self-care (01) | DRG 194 ==
LOC: ER 14:08 → ED HOLD 19:38 → PCU 3S 06-19 14:54
PROVIDERS: ADMIT Internal Medicine; ATTEND Family Medicine
DX: I13.0 Hypertensive heart and chronic kidney disease with heart failure and stage 1 through stage 4 chronic kidney disease, or unspecified chronic kidney disease (principal); E11.22 Type 2 diabetes mellitus with diabetic chronic kidney disease; E11.40 Type 2 diabetes mellitus with diabetic neuropathy, unspecified; E03.9 Hypothyroidism, unspecified; E78.00 Pure hypercholesterolemia, unspecified; E87.5 Hyperkalemia; I50.812 Chronic right heart failure; Z20.822 Contact with and (suspected) exposure to COVID-19; I50.43 Acute on chronic combined systolic (congestive) and diastolic (congestive) heart failure; F39 Unspecified mood [affective] disorder; G47.30 Sleep apnea, unspecified; J43.9 Emphysema, unspecified; N18.30 Chronic kidney disease, stage 3 unspecified; E66.01 Morbid (severe) obesity due to excess calories; F32.A Depression, unspecified; F41.9 Anxiety disorder, unspecified; G89.29 Other chronic pain; K21.9 Gastro-esophageal reflux disease without esophagitis; M54.9 Dorsalgia, unspecified; Z56.0 Unemployment, unspecified; Z87.891 Personal history of nicotine dependence; Z88.0 Allergy status to penicillin; Z88.5 Allergy status to narcotic agent; Z71.6 Tobacco abuse counseling; Z68.41 Body mass index [BMI] 40.0-44.9, adult
CPT/HCPCS: 36415; 71045; 80053; 80305; 81001; 82948; 83036; 83605; 83735; 83880; 84443; 85008; 85025; 87040; 87081; 87635; 93005; 93306; 94640; 94760; 99291; C9803; G0378; J1644; J1815; J1940

== ENCOUNTER 2022-09-17 18:48 | Inpatient (IN) | payer MEDICAID ==
[~2022-09-17] VITALS: Ht 177.8 cm; Wt 139.0 kg
[~2022-09-17 18:48] MED LIST changes: -BUDE180A INH; +BUSP30TA2 PO; +DESI25TA PO; -FOLI-91 PO; +LEVO50TA8 PO; +NYSPWD TP; -POTA-188 PO; +POTA-207 PO; +TIOT18CA3 INH
--- NOTE | 2022-09-17 19:30 | NUR ---
I agree with Otto Joe assessment.
[2022-09-17 19:35] LABS: BASOPHILS # (AUTO) 0.1 X10'3 (0-0.2); BASOPHILS % (AUTO) 0.8 % (0-1); EOSINOPHILS # (AUTO) 0.2 X10'3 (0-0.9); EOSINOPHILS % (AUTO) 1.5 % (0-6); LYMPHOCYTES # (AUTO) 0.9 X10'3 (1.1-4.8); LYMPHOCYTES % (AUTO) 7.7 % (21-51); MEAN PLATELET VOLUME 8.4 FL (7.4-10.4); MONOCYTES # (AUTO) 0.9 X10'3 (0-0.9); MONOCYTES % (AUTO) 7.6 % (2-12); NEUTROPHILS # (AUTO) 9.3 X10'3 (1.8-7.7); NEUTROPHILS % (AUTO) 82.4 % (42-75); PLATELET COUNT 228 X10'3 (140-440); WHITE BLOOD COUNT 11.3 X10'3 (4.5-11.0)
[2022-09-17] MEDS ORDERED: methylPREDNISolone sod succ 125mg/2ml vial IV ONE (19:35)
[2022-09-17 20:00] LABS: ALANINE AMINOTRANSFERASE 23 U/L (12-78); ALBUMIN/GLOBULIN RATIO 0.8 (1.1-1.5); ALKALINE PHOSPHATASE 118 IU/L (46-116); ANION GAP 4 (8-16); ASPARTATE AMINO TRANSFERASE 23 U/L (10-37); BILIRUBIN,TOTAL 0.4 MG/DL (0.1-1.0); BLOOD UREA NITROGEN 48 MG/DL (7-18); BUN/CREATININE RATIO 22.9 (6.6-38.0); CALCIUM 8.3 MG/DL (8.5-10.1); CHLORIDE 100 MMOL/L (99-107); GLUCOSE 165 MG/DL (70-104); MAGNESIUM 1.6 MG/DL (1.5-2.4); SODIUM 136 MMOL/L (135-145); TOTAL CARBON DIOXIDE 31.8 MMOL/L (24-32); TOTAL PROTEIN 6.9 G/DL (6.4-8.2); eGFR 25 ML/MIN
[2022-09-17] MEDS ORDERED: nitroGLYCERIN 0.4mg/hour patch TD ONE (20:10)
[2022-09-17] MEDS ORDERED: PATIROMER CALCIUM SORBITEX 8.4 GM POWD.PACK PO ONE (20:10)
[2022-09-17] MEDS ORDERED: normal saline 1000ml 1,000 ML IV ONE (20:10)
[2022-09-17 20:17] LABS: HEMOGLOBIN 12.2 g/dl (12.0-16.0); RED BLOOD COUNT 4.95 X10'6 (4.20-5.60)
[2022-09-17 20:18] LABS: HEMATOCRIT 38.9 % (35.0-45.0); MEAN CORPUSCULAR HEMOGLOBIN 24.7 PG (27.0-31.0); MEAN CORPUSCULAR HGB CONC 31.4 g/dL (33.0-36.5); MEAN CORPUSCULAR VOLUME 78.5 FL (78-98); RED CELL DISTRIBUTION WIDTH 20.1 % (11.5-14.5)
[2022-09-17] MEDS ORDERED: ipratropium/albuterol 3ml nebule NEB ONE (21:05)
[2022-09-17 21:29] LABS: ANISOCYTOSIS 3+; PLATELET ESTIMATE NORMAL
[2022-09-17 21:30] LABS: MICROCYTOSIS 1+
[2022-09-17 21:31] LABS: ELLIPTOCYTES FEW; SPHEROCYTES FEW; TEAR DROP CELLS FEW
[2022-09-17] MEDS ORDERED: potassium Cl 20 mEq SR tablet PO PRN ×2 (22:20)
[2022-09-17] MEDS ORDERED: acetaminophen 325mg tablet PO PRN (22:20)
[2022-09-17] MEDS ORDERED: magnesium Cl slow-release 64mg tablet PO PRN (22:20)
[2022-09-17] MEDS ORDERED: mag hydrox/Alum hydrox/simeth 30ml oral suspension PO PRN (22:20)
[2022-09-17] MEDS ORDERED: magnesium 4gm in 100ml NS 100 ML IV PRN (22:20)
[2022-09-17] MEDS ORDERED: PERFLUTREN PROTEIN-A MICROSPHR (Optison) 0.22 MG/ML 3ML VIAL IV PRN (22:20)
[2022-09-17] MEDS ORDERED: ondansetron/PF 4mg/2ml inj IV PRN (22:20)
[2022-09-17] MEDS ORDERED: potassium Cl 40MEQ/1/2NS 520ml 520 ML IV PRN (22:20)
[2022-09-17] MEDS ORDERED: magnesium hydroxide 30ml (MOM) UD suspension PO PRN (22:20)
[2022-09-17] MEDS ORDERED: baclofen 10mg tablet PO PRN (22:30)
[2022-09-17] MEDS ORDERED: albuterol 2.5 MG/3 ML nebule NEB PRN (22:40)
[2022-09-17] MEDS: normal saline 1000ml 1,000 ML IV SCH (22:56)
[2022-09-18 01:25] LABS: CLARITY,URINE CLEAR (Clear); GLUCOSE, URINE 100 mg/dl (Neg); KETONES,URINE TRACE mg/dl (Neg); LEUKOCYTE ESTERASE ,URINE NEGATIVE (Neg); NITRITES, URINE POSITIVE (Neg); OCCULT BLOOD,URINE NEGATIVE (Neg); PH,URINE 5.5 (4.8-8.0); PROTEIN,URINE TRACE mg/dl (Neg)
[2022-09-18 01:32] LABS: UA COLLECTION TYPE STRAIGHT CATH
[2022-09-18 01:33] LABS: COLOR,URINE DARK YELLOW (Yellow)
[2022-09-18 01:37] LABS: BACTERIA,URINE 3+ /HPF (Neg); SQUAMOUS EPITHELIAL CELL,UR FEW /LPF (FEW)
--- NOTE | 2022-09-18 01:38 | NUR ---
pt found in room with clothes off, iv pulled out, and nasal cannula out. o2 saturation down to 82% on room air. pt placed back on o2 with o2 saturation at 97%. iv replaced and pt covered with blankets.
--- NOTE | 2022-09-18 04:28 | NUR ---
PT REMOVED NASAL CANULA. O2 SAT DOWN TO 66%. NASAL CANULA PLACED BACK ON PT AT 4L AND O2 BACK UP TO 93%.
[2022-09-18 07:45] VITALS: BP 112/63
[2022-09-18] MEDS: DESIPRAMINE PO SCH ×2 (08:00→20:00)
[2022-09-18] MEDS: K and/or MAG REPLACEMENT MC SCH ×2 (08:00→20:00)
[2022-09-18] MEDS: normal saline 1000ml 1,000 ML IV SCH (08:33)
[2022-09-18] MEDS: levoTHYROXINE 25mcg tablet PO SCH (08:35)
[2022-09-18] MEDS: atorvastatin 20mg tablet PO SCH (08:35)
[2022-09-18] MEDS: busPIRone 5mg tablet PO SCH ×2 (08:35→20:52)
[2022-09-18] MEDS: metoprolol succinate 25mg (24-HOUR) SR. Tablet PO SCH (08:35)
[2022-09-18] MEDS: docusate sod 100mg capsule PO SCH ×2 (08:35→20:52)
[2022-09-18] MEDS: furosemide 40mg tablet PO SCH (08:35)
[2022-09-18] MEDS: famotidine 20mg tablet PO SCH (08:36)
[2022-09-18] MEDS: heparin, porcine 5000 units/ml vial SQ SCH ×2 (08:36→20:52)
[2022-09-18] MEDS: ipratropium 0.5 MG/2.5ML nebule IH SCH ×3 (09:16→20:42)
[2022-09-18 09:27] LABS: BASOPHILS % (AUTO) 0.3 % (0-1); EOSINOPHILS % (AUTO) 0 % (0-6); HEMATOCRIT 43.9 % (35.0-45.0); HEMOGLOBIN 12.8 g/dl (12.0-16.0); LYMPHOCYTES # (AUTO) 0.4 X10'3 (1.1-4.8); LYMPHOCYTES % (AUTO) 3.7 % (21-51); MEAN CORPUSCULAR HEMOGLOBIN 23.8 PG (27.0-31.0); MEAN CORPUSCULAR HGB CONC 29.1 g/dL (33.0-36.5); MEAN CORPUSCULAR VOLUME 81.7 FL (78-98); MEAN PLATELET VOLUME 8.6 FL (7.4-10.4); MONOCYTES # (AUTO) 0.3 X10'3 (0-0.9); PLATELET COUNT 191 X10'3 (140-440); RED BLOOD COUNT 5.37 X10'6 (4.20-5.60); RED CELL DISTRIBUTION WIDTH 20.8 % (11.5-14.5); WHITE BLOOD COUNT 9.7 X10'3 (4.5-11.0)
[2022-09-18 09:56] LABS: ALANINE AMINOTRANSFERASE 23 U/L (12-78); ALBUMIN 2.9 G/DL (3.4-5.0); ALBUMIN/GLOBULIN RATIO 0.7 (1.1-1.5); ALKALINE PHOSPHATASE 119 IU/L (46-116); ANION GAP 7 (8-16); ASPARTATE AMINO TRANSFERASE 19 U/L (10-37); BILIRUBIN,TOTAL 0.3 MG/DL (0.1-1.0); BLOOD UREA NITROGEN 46 MG/DL (7-18); BUN/CREATININE RATIO 32.6 (6.6-38.0); CALCIUM 8.7 MG/DL (8.5-10.1); CHLORIDE 100 MMOL/L (99-107); CREATININE 1.41 MG/DL (0.40-0.90); GLUCOSE 193 MG/DL (70-104); SODIUM 135 MMOL/L (135-145); TOTAL CARBON DIOXIDE 27.6 MMOL/L (24-32); TOTAL PROTEIN 6.9 G/DL (6.4-8.2); eGFR 39 ML/MIN
[2022-09-18] MEDS ORDERED: PATIROMER CALCIUM SORBITEX 8.4 GM POWD.PACK PO ONE (10:30)
[2022-09-18 11:00] VITALS: BP 120/64
[2022-09-18] MEDS: CefTRIAXone/D5W-Rocephin 1gm 50 ML IV SCH (15:06)
[2022-09-18] MEDS: nystatin 15 GM powder TP SCH ×3 (15:06→20:53)
--- NOTE | 2022-09-18 18:08 | NUR ---
Problems reprioritized. Patient report given, questions answered & plan of care reviewed with INGRID Kowalski.
[2022-09-18 18:30] VITALS: BP 98/44
--- NOTE | 2022-09-18 18:30 | NUR ---
Patient in room TOMMY 357. I have received report from INGRID Steward and had the opportunity to ask questions and assume patient care. Addendum: 09/18/22 at 2201 by Krissy Fiore RN Amended: Links added.
[2022-09-18 22:30] VITALS: BP 115/67
--- NOTE | 2022-09-19 00:30 | NUR ---
Pt is not coughing rr wnl . pt instructed to call when medication needed. Addendum: 09/19/22 at 0207 by Krissy Fiore RN Amended: Links added.
[2022-09-19] MEDS: guaiFENesin/DM 10ml UD oral syrup PO PRN ×2 (02:12→06:56)
[2022-09-19] MEDS: ipratropium 0.5 MG/2.5ML nebule IH SCH ×4 (03:00→21:06)
[2022-09-19 04:21] LABS: ALANINE AMINOTRANSFERASE 19 U/L (12-78); ALBUMIN 2.7 G/DL (3.4-5.0); ALBUMIN/GLOBULIN RATIO 0.7 (1.1-1.5); ALKALINE PHOSPHATASE 106 IU/L (46-116); ANION GAP 5 (8-16); ASPARTATE AMINO TRANSFERASE 10 U/L (10-37); BILIRUBIN,TOTAL 0.2 MG/DL (0.1-1.0); BLOOD UREA NITROGEN 45 MG/DL (7-18); BUN/CREATININE RATIO 37.5 (6.6-38.0); CALCIUM 9.4 MG/DL (8.5-10.1); CHLORIDE 101 MMOL/L (99-107); GLUCOSE 201 MG/DL (70-104); MAGNESIUM 2.1 MG/DL (1.5-2.4); POTASSIUM 5.3 MMOL/L (3.5-5.1); SODIUM 138 MMOL/L (135-145); TOTAL CARBON DIOXIDE 32.4 MMOL/L (24-32); TOTAL PROTEIN 6.5 G/DL (6.4-8.2); eGFR 47 ML/MIN
[2022-09-19 04:40] LABS: BASOPHILS # (AUTO) 0.1 X10'3 (0-0.2); BASOPHILS % (AUTO) 0.5 % (0-1); EOSINOPHILS # (AUTO) 0.1 X10'3 (0-0.9); EOSINOPHILS % (AUTO) 0.9 % (0-6); LYMPHOCYTES # (AUTO) 1.6 X10'3 (1.1-4.8); LYMPHOCYTES % (AUTO) 13.6 % (21-51); MEAN PLATELET VOLUME 8.5 FL (7.4-10.4); MONOCYTES % (AUTO) 8.2 % (2-12); NEUTROPHILS # (AUTO) 9.2 X10'3 (1.8-7.7); NEUTROPHILS % (AUTO) 76.8 % (42-75); PLATELET COUNT 214 X10'3 (140-440)
[2022-09-19 06:00] VITALS: BP 104/46
--- NOTE | 2022-09-19 06:31 | NUR ---
Patient in room TOMMY 357. I have received report from Meghana and had the opportunity to ask questions and assume patient care.
--- NOTE | 2022-09-19 06:31 | NUR ---
Problems reprioritized. Patient report given, questions answered & plan of care reviewed with INGRID Steward. Addendum: 09/19/22 at 0631 by Krissy Fiore RN Amended: Links added.
--- NOTE | 2022-09-19 06:36 | NUR ---
pt states had hx of suicidal thoughts denies any plan. States she follows Psychiatrist and denies any thoughts or plans now. Addendum: 09/19/22 at 0637 by Krissy Fiore RN Amended: Links added.
[2022-09-19] MEDS: K and/or MAG REPLACEMENT MC SCH ×2 (06:41→20:00)
[2022-09-19 06:43] LABS: HEMATOCRIT 44.8 % (35.0-45.0); HEMOGLOBIN 13.4 g/dl (12.0-16.0); MEAN CORPUSCULAR HEMOGLOBIN 24.6 PG (27.0-31.0); MEAN CORPUSCULAR VOLUME 82.1 FL (78-98); RED BLOOD COUNT 5.45 X10'6 (4.20-5.60)
[2022-09-19 06:44] LABS: MEAN CORPUSCULAR HGB CONC 29.9 g/dL (33.0-36.5); RED CELL DISTRIBUTION WIDTH 20.7 % (11.5-14.5)
[2022-09-19 07:03] LABS: ANISOCYTOSIS 3+; PLATELET ESTIMATE NORMAL
[2022-09-19] MEDS: CefTRIAXone/D5W-Rocephin 1gm 50 ML IV SCH (07:03)
[2022-09-19] MEDS: levoTHYROXINE 25mcg tablet PO SCH (07:03)
[2022-09-19 07:04] LABS: HYPOCHROMASIA 1+; MICROCYTOSIS 1+; POLYCHROMASIA 1+
[2022-09-19] MEDS: nystatin 15 GM powder TP SCH ×3 (07:07→20:54)
--- NOTE | 2022-09-19 07:47 | NUR ---
PAGER ID: [phone] MESSAGE: Dorie Lan in [id number] does not have diabetic protocol ordered. Blood sugars running in 200's. Would you like to start protocol? -Nichelle [phone]
[2022-09-19] MEDS: DESIPRAMINE PO SCH ×2 (08:00→20:00)
[2022-09-19] MEDS: famotidine 20mg tablet PO SCH (08:33)
[2022-09-19] MEDS: busPIRone 5mg tablet PO SCH ×2 (08:33→20:41)
[2022-09-19] MEDS: furosemide 40mg tablet PO SCH (08:33)
[2022-09-19] MEDS: metoprolol succinate 25mg (24-HOUR) SR. Tablet PO SCH (08:33)
[2022-09-19] MEDS: atorvastatin 20mg tablet PO SCH (08:33)
[2022-09-19] MEDS: docusate sod 100mg capsule PO SCH ×2 (08:34→20:00)
[2022-09-19] MEDS: heparin, porcine 5000 units/ml vial SQ SCH ×2 (08:36→20:41)
[2022-09-19] MEDS ORDERED: DEXTROSE 15 GM of carb/4 tabs (each vial/BOTTLE has 4 tablets) PO PRN ×2 (09:50)
[2022-09-19] MEDS ORDERED: MESSAGE TO PHARMACY PO ONE (09:50)
[2022-09-19] MEDS ORDERED: glucagon, human recombinant 1mg kit SUBCUT PRN (09:50)
[2022-09-19] MEDS ORDERED: dextrose 50%-water 50ml dispensing syringe IV PRN ×2 (09:50)
[2022-09-19 10:00] VITALS: BP 131/58
[2022-09-19 10:24] LABS: HEMOGLOBIN A1C 7.3 % (4.5-6.2)
[2022-09-19] MEDS ORDERED: furosemide 40mg/4ml inj IV ONE (12:25)
[2022-09-19] MEDS: insulin Lispro (HumaLOG) vial - multi-dose SQ SCH ×2 (13:41→18:57)
[2022-09-19 18:30] VITALS: BP 151/73
[2022-09-19] MEDS: insulin glargine (Lantus) pen - multi-dose SQ SCH (21:00)
[2022-09-19 22:00] VITALS: BP 147/71
[2022-09-20] MEDS: ipratropium 0.5 MG/2.5ML nebule IH SCH ×4 (03:00→21:00)
[2022-09-20 05:48] LABS: BASOPHILS % (AUTO) 0.3 % (0-1); EOSINOPHILS # (AUTO) 0.1 X10'3 (0-0.9); EOSINOPHILS % (AUTO) 0.9 % (0-6); LYMPHOCYTES # (AUTO) 0.8 X10'3 (1.1-4.8); LYMPHOCYTES % (AUTO) 8.9 % (21-51); MEAN PLATELET VOLUME 8.3 FL (7.4-10.4); MONOCYTES # (AUTO) 0.6 X10'3 (0-0.9); MONOCYTES % (AUTO) 6.1 % (2-12); NEUTROPHILS # (AUTO) 7.8 X10'3 (1.8-7.7); NEUTROPHILS % (AUTO) 83.8 % (42-75); PLATELET COUNT 181 X10'3 (140-440); WHITE BLOOD COUNT 9.4 X10'3 (4.5-11.0)
[2022-09-20 06:00] VITALS: BP 155/91
[2022-09-20 06:02] LABS: ALANINE AMINOTRANSFERASE 20 U/L (12-78); ALBUMIN 2.8 G/DL (3.4-5.0); ALBUMIN/GLOBULIN RATIO 0.7 (1.1-1.5); ALKALINE PHOSPHATASE 113 IU/L (46-116); ANION GAP 6 (8-16); ASPARTATE AMINO TRANSFERASE 13 U/L (10-37); BILIRUBIN,TOTAL 0.4 MG/DL (0.1-1.0); BLOOD UREA NITROGEN 24 MG/DL (7-18); BUN/CREATININE RATIO 30.8 (6.6-38.0); CALCIUM 8.7 MG/DL (8.5-10.1); CHLORIDE 96 MMOL/L (99-107); CREATININE 0.78 MG/DL (0.40-0.90); GLUCOSE 187 MG/DL (70-104); MAGNESIUM 1.3 MG/DL (1.5-2.4); POTASSIUM 4.2 MMOL/L (3.5-5.1); SODIUM 137 MMOL/L (135-145); TOTAL CARBON DIOXIDE 34.9 MMOL/L (24-32); TOTAL PROTEIN 6.6 G/DL (6.4-8.2); eGFR 78 ML/MIN
[2022-09-20 07:15] LABS: HEMATOCRIT 38.8 % (35.0-45.0); MEAN CORPUSCULAR HEMOGLOBIN 24.7 PG (27.0-31.0); MEAN CORPUSCULAR HGB CONC 30.8 g/dL (33.0-36.5); MEAN CORPUSCULAR VOLUME 80.2 FL (78-98); RED BLOOD COUNT 4.84 X10'6 (4.20-5.60)
[2022-09-20] MEDS: nystatin 15 GM powder TP SCH ×3 (08:00→21:00)
[2022-09-20] MEDS: DESIPRAMINE PO SCH ×2 (08:00→19:05)
[2022-09-20] MEDS: K and/or MAG REPLACEMENT MC SCH ×2 (08:00→19:05)
[2022-09-20] MEDS: CefTRIAXone/D5W-Rocephin 1gm 50 ML IV SCH (08:22)
[2022-09-20] MEDS: furosemide 40mg/4ml inj IV SCH (08:23)
[2022-09-20] MEDS: docusate sod 100mg capsule PO SCH ×2 (09:08→19:33)
[2022-09-20] MEDS: busPIRone 5mg tablet PO SCH ×2 (09:08→19:33)
[2022-09-20] MEDS: metoprolol succinate 25mg (24-HOUR) SR. Tablet PO SCH (09:08)
[2022-09-20] MEDS: famotidine 20mg tablet PO SCH (09:08)
[2022-09-20] MEDS: atorvastatin 20mg tablet PO SCH (09:08)
[2022-09-20] MEDS: levoTHYROXINE 25mcg tablet PO SCH (09:08)
[2022-09-20] MEDS: heparin, porcine 5000 units/ml vial SQ SCH ×2 (09:09→19:33)
[2022-09-20] MEDS: insulin Lispro (HumaLOG) vial - multi-dose SQ SCH ×2 (09:10→19:35)
[2022-09-20 09:27] LABS: ANISOCYTOSIS 3+; ELLIPTOCYTES FEW; HYPOCHROMASIA 2+; MICROCYTOSIS 1+; PLATELET ESTIMATE NORMAL; POLYCHROMASIA FEW; TEAR DROP CELLS FEW
[2022-09-20 09:28] LABS: STOMATOCYTES 1+
[2022-09-20 18:00] VITALS: BP 117/90
--- NOTE | 2022-09-20 18:07 | NUR ---
RELEASE AND TECHNICAL RECORDS CLERK documentation: I have reviewed and agree with all interventions, assessments performed and documented by Kimberly Mcgowan LVN.
--- NOTE | 2022-09-20 18:22 | NUR ---
Problems reprioritized. Patient report given, questions answered & plan of care reviewed with CYRUS QUINTERO.
[2022-09-20] MEDS: guaiFENesin/DM 10ml UD oral syrup PO PRN (19:39)
[2022-09-20] MEDS: insulin glargine (Lantus) pen - multi-dose SQ SCH (20:57)
[2022-09-20 22:00] VITALS: BP 148/86
[2022-09-21] MEDS: ipratropium 0.5 MG/2.5ML nebule IH SCH ×4 (02:59→21:21)
[2022-09-21 06:58] LABS: BASOPHILS % (AUTO) 0.5 % (0-1); EOSINOPHILS # (AUTO) 0.2 X10'3 (0-0.9); EOSINOPHILS % (AUTO) 1.7 % (0-6); HEMATOCRIT 40.7 % (35.0-45.0); HEMOGLOBIN 12.3 g/dl (12.0-16.0); LYMPHOCYTES # (AUTO) 1.3 X10'3 (1.1-4.8); LYMPHOCYTES % (AUTO) 14.2 % (21-51); MEAN CORPUSCULAR HEMOGLOBIN 24.1 PG (27.0-31.0); MEAN CORPUSCULAR HGB CONC 30.3 g/dL (33.0-36.5); MEAN CORPUSCULAR VOLUME 79.3 FL (78-98); MEAN PLATELET VOLUME 8.4 FL (7.4-10.4); MONOCYTES # (AUTO) 0.7 X10'3 (0-0.9); MONOCYTES % (AUTO) 7.6 % (2-12); PLATELET COUNT 184 X10'3 (140-440); RED BLOOD COUNT 5.13 X10'6 (4.20-5.60); RED CELL DISTRIBUTION WIDTH 20.8 % (11.5-14.5); WHITE BLOOD COUNT 9.2 X10'3 (4.5-11.0)
--- NOTE | 2022-09-21 07:00 | NUR ---
Patient in room TOMMY 357. I have received report from Ana QUINTERO and had the opportunity to ask questions and assume patient care.
[2022-09-21 07:12] VITALS: BP 137/79
[2022-09-21 07:25] LABS: ALANINE AMINOTRANSFERASE 13 U/L (12-78); ALBUMIN 2.9 G/DL (3.4-5.0); ALBUMIN/GLOBULIN RATIO 0.8 (1.1-1.5); ALKALINE PHOSPHATASE 105 IU/L (46-116); ANION GAP 6 (8-16); ASPARTATE AMINO TRANSFERASE 19 U/L (10-37); BILIRUBIN,TOTAL 0.6 MG/DL (0.1-1.0); BLOOD UREA NITROGEN 19 MG/DL (7-18); BUN/CREATININE RATIO 26.8 (6.6-38.0); CALCIUM 8.5 MG/DL (8.5-10.1); CHLORIDE 97 MMOL/L (99-107); CREATININE 0.71 MG/DL (0.40-0.90); GLUCOSE 132 MG/DL (70-104); MAGNESIUM 1.5 MG/DL (1.5-2.4); POTASSIUM 3.7 MMOL/L (3.5-5.1); SODIUM 136 MMOL/L (135-145); TOTAL CARBON DIOXIDE 33.2 MMOL/L (24-32); TOTAL PROTEIN 6.7 G/DL (6.4-8.2); eGFR 87 ML/MIN
[2022-09-21] MEDS: famotidine 20mg tablet PO SCH (07:29)
[2022-09-21] MEDS: atorvastatin 20mg tablet PO SCH (07:29)
[2022-09-21] MEDS: docusate sod 100mg capsule PO SCH ×2 (07:30→20:00)
[2022-09-21] MEDS: metoprolol succinate 25mg (24-HOUR) SR. Tablet PO SCH (07:30)
[2022-09-21] MEDS: levoTHYROXINE 25mcg tablet PO SCH (07:30)
[2022-09-21] MEDS: nystatin 15 GM powder TP SCH ×3 (07:30→21:19)
[2022-09-21] MEDS: busPIRone 5mg tablet PO SCH ×2 (07:30→20:41)
[2022-09-21] MEDS: CefTRIAXone/D5W-Rocephin 1gm 50 ML IV SCH (07:30)
[2022-09-21] MEDS: furosemide 40mg/4ml inj IV SCH (07:32)
[2022-09-21] MEDS: heparin, porcine 5000 units/ml vial SQ SCH ×2 (07:32→20:41)
[2022-09-21] MEDS: DESIPRAMINE PO SCH ×2 (08:00→20:00)
[2022-09-21] MEDS: K and/or MAG REPLACEMENT MC SCH ×2 (08:00→20:00)
--- NOTE | 2022-09-21 09:34 | NUR ---
O2 Sat at rest on room air:_84__% If below 89%: Recovery O2 Sat at rest on _2__LPM:__95_%:___% via_Nasal Cannula__(mask/nasal cannula, etc..) No further documentation is necessary. If O2 Sat did not drop below 89% on room air,ambulate patient on room air. O2 Sat while ambulating on room air:___% Recovery O2 Sat while ambulating on ___LPM:___% No further documentation is necessary. If patient does not drop below 89% while ambulating, he/she does not qualify for home O2.
[2022-09-21 10:57] VITALS: BP 127/78
[2022-09-21] MEDS ORDERED: iohexol 350MG/ML 100ml bottle IV ONE ×2 (11:28→18:16)
--- NOTE | 2022-09-21 12:25 | NUR ---
Paged hospitalist. PAGER ID: [phone] MESSAGE: Re: [id number] Dorie Lan. IV infiltrated during contrast infusion, patient refusing to repeat today, would like to do CTA as outpatient tomorrow. Please advise [facility] surgical [phone]. Hospitalist returned call, unable to discharge until CTA is complected.
[2022-09-21] MEDS: insulin Lispro (HumaLOG) vial - multi-dose SQ SCH (14:02)
--- NOTE | 2022-09-21 14:29 | NUR ---
Initial: Pt admit for weakness, ZULEMA, and UTI. Currently on a CHO controlled diet and eating well, documented with 100% PO intake throughout LOS with the exception of refusing lunch 09/20 and average 75% PO intake at breakfast this morning. Overall pt meeting estimated nutrient needs. Noted pt with T2DM, well controlled with A1c 7.3%. Written DM education with RD contact information placed in patient's chart. LBM 09/18, receiving routine bowel care and with PRN bowel care available. Will continue to follow. Recommendations: 1) Continue CHO controlled diet 2) Monitor need for additional protein for satiety 3) Routine bowel care 4) Scaled weight this admit; subsequent weekly scaled weights Addendum: 09/21/22 at [address] Amended: Links added.
[2022-09-21 18:00] VITALS: BP 137/81
--- NOTE | 2022-09-21 18:16 | NUR ---
Problems reprioritized. Patient report given, questions answered & plan of care reviewed with Trinidad QUINTERO.
[2022-09-21] MEDS: guaiFENesin/DM 10ml UD oral syrup PO PRN (21:00)
[2022-09-21] MEDS: insulin glargine (Lantus) pen - multi-dose SQ SCH (21:58)
[2022-09-21 22:00] VITALS: BP 111/69
[2022-09-22] MEDS: ipratropium 0.5 MG/2.5ML nebule IH SCH ×3 (02:46→15:00)
--- NOTE | 2022-09-22 06:32 | NUR ---
Patient in room TOMMY 357. I have received report from Trinidad RN and had the opportunity to ask questions and assume patient care.
[2022-09-22 06:40] VITALS: BP 161/85
[2022-09-22 06:52] LABS: BASOPHILS # (AUTO) 0.1 X10'3 (0-0.2); BASOPHILS % (AUTO) 0.8 % (0-1); EOSINOPHILS # (AUTO) 0.1 X10'3 (0-0.9); EOSINOPHILS % (AUTO) 1.2 % (0-6); LYMPHOCYTES # (AUTO) 1.1 X10'3 (1.1-4.8); LYMPHOCYTES % (AUTO) 11.7 % (21-51); MEAN PLATELET VOLUME 8.4 FL (7.4-10.4); MONOCYTES # (AUTO) 0.8 X10'3 (0-0.9); MONOCYTES % (AUTO) 8.3 % (2-12); NEUTROPHILS # (AUTO) 7.4 X10'3 (1.8-7.7); PLATELET COUNT 176 X10'3 (140-440); RED CELL DISTRIBUTION WIDTH 20.7 % (11.5-14.5); WHITE BLOOD COUNT 9.5 X10'3 (4.5-11.0)
[2022-09-22] MEDS: furosemide 40mg/4ml inj IV SCH (07:26)
[2022-09-22] MEDS: CefTRIAXone/D5W-Rocephin 1gm 50 ML IV SCH (07:26)
[2022-09-22] MEDS: nystatin 15 GM powder TP SCH ×2 (07:26→13:43)
[2022-09-22] MEDS: docusate sod 100mg capsule PO SCH (07:27)
[2022-09-22] MEDS: busPIRone 5mg tablet PO SCH (07:27)
[2022-09-22] MEDS: metoprolol succinate 25mg (24-HOUR) SR. Tablet PO SCH (07:27)
[2022-09-22] MEDS: heparin, porcine 5000 units/ml vial SQ SCH (07:27)
[2022-09-22] MEDS: famotidine 20mg tablet PO SCH (07:27)
[2022-09-22] MEDS: levoTHYROXINE 25mcg tablet PO SCH (07:27)
[2022-09-22] MEDS: atorvastatin 20mg tablet PO SCH (07:27)
[2022-09-22 07:28] LABS: HEMATOCRIT 38.4 % (35.0-45.0); HEMOGLOBIN 11.7 g/dl (12.0-16.0); MEAN CORPUSCULAR HEMOGLOBIN 23.7 PG (27.0-31.0); MEAN CORPUSCULAR HGB CONC 30.6 g/dL (33.0-36.5); MEAN CORPUSCULAR VOLUME 77.6 FL (78-98); RED BLOOD COUNT 4.95 X10'6 (4.20-5.60)
[2022-09-22] MEDS: DESIPRAMINE PO SCH (07:42)
[2022-09-22] MEDS: K and/or MAG REPLACEMENT MC SCH (08:00)
[2022-09-22 08:04] LABS: ALANINE AMINOTRANSFERASE 16 U/L (12-78); ALBUMIN 3.2 G/DL (3.4-5.0); ALBUMIN/GLOBULIN RATIO 0.8 (1.1-1.5); ALKALINE PHOSPHATASE 112 IU/L (46-116); ANION GAP 7 (8-16); ASPARTATE AMINO TRANSFERASE 17 U/L (10-37); BILIRUBIN,TOTAL 0.6 MG/DL (0.1-1.0); BLOOD UREA NITROGEN 19 MG/DL (7-18); BUN/CREATININE RATIO 21.8 (6.6-38.0); CALCIUM 8.8 MG/DL (8.5-10.1); CHLORIDE 97 MMOL/L (99-107); CREATININE 0.87 MG/DL (0.40-0.90); GLUCOSE 141 MG/DL (70-104); POTASSIUM 3.5 MMOL/L (3.5-5.1); SODIUM 137 MMOL/L (135-145); eGFR 69 ML/MIN
[2022-09-22 11:37] VITALS: BP 129/77
[2022-09-22] MEDS: insulin Lispro (HumaLOG) vial - multi-dose SQ SCH (13:43)
[2022-09-22] MEDS ORDERED: ALBU6.7H14 INH (14:05)
[2022-09-22] MEDS ORDERED: LACT1CAP26 PO (14:05)
[2022-09-22] MEDS ORDERED: CEFD300C3 PO (14:05)
[2022-09-22] MEDS ORDERED: BUDE10.22 INH (14:05)
[2022-09-22] MEDS ORDERED: PRED20TA PO (14:05)
--- NOTE | 2022-09-22 16:29 | NUR ---
Received discharge orders, reviewed orders and instructions with patient, Patient verbalized understanding. IV removed, cannula intact. Patient wheeled to lobby with belongings.
== END 2022-09-22 16:00 | disposition home health service (06) | DRG 812 ==
LOC: ER 18:48 → ED HOLD 22:22 → SUR 3N 09-18 07:30
PROVIDERS: ADMIT Internal Medicine; ATTEND Family Medicine
PROC: B32T1ZZ Computerized Tomography (CT Scan) of Left Pulmonary Artery using Low Osmolar Contrast (ICD-10-PCS; principal; 2022-09-21)
PROC: B3201ZZ Computerized Tomography (CT Scan) of Thoracic Aorta using Low Osmolar Contrast (ICD-10-PCS; 2022-09-21)
PROC: B32S1ZZ Computerized Tomography (CT Scan) of Right Pulmonary Artery using Low Osmolar Contrast (ICD-10-PCS; 2022-09-21)
DX: T42.6X1A Poisoning by other antiepileptic and sedative-hypnotic drugs, accidental (unintentional), initial encounter (principal); N17.0 Acute kidney failure with tubular necrosis; I50.33 Acute on chronic diastolic (congestive) heart failure; J96.11 Chronic respiratory failure with hypoxia; N39.0 Urinary tract infection, site not specified; E11.22 Type 2 diabetes mellitus with diabetic chronic kidney disease; E03.9 Hypothyroidism, unspecified; B96.20 Unspecified Escherichia coli [E. coli] as the cause of diseases classified elsewhere; Z20.822 Contact with and (suspected) exposure to COVID-19; E66.01 Morbid (severe) obesity due to excess calories; E78.00 Pure hypercholesterolemia, unspecified; R00.0 Tachycardia, unspecified; F17.200 Nicotine dependence, unspecified, uncomplicated; J43.9 Emphysema, unspecified; I13.0 Hypertensive heart and chronic kidney disease with heart failure and stage 1 through stage 4 chronic kidney disease, or unspecified chronic kidney disease; F32.A Depression, unspecified; E87.5 Hyperkalemia; N18.9 Chronic kidney disease, unspecified; F41.9 Anxiety disorder, unspecified; G47.30 Sleep apnea, unspecified; G89.29 Other chronic pain; K21.9 Gastro-esophageal reflux disease without esophagitis; M54.9 Dorsalgia, unspecified; Z88.0 Allergy status to penicillin; Z56.0 Unemployment, unspecified; Z88.5 Allergy status to narcotic agent; Y92.89 Other specified places as the place of occurrence of the external cause; Z79.899 Other long term (current) drug therapy; Z68.41 Body mass index [BMI] 40.0-44.9, adult
CPT/HCPCS: 36415; 71045; 71275; 80053; 81001; 82948; 83036; 83605; 83735; 83880; 84132; 84145; 84484; 85008; 85025; 87077; 87081; 87088; 87186; 87502; 87503; 87635; 93005; 93306; 94640; 94760; 96361; 96374; 99285; A6258; C9803; G0378; J0696; J1644; J1815; J1940; J2930; J3490; J7030; Q9967

== ENCOUNTER 2024-02-21 14:53 | Inpatient (IN) | payer MEDICAID ==
[~2024-02-21] VITALS: Ht 177.8 cm; Wt 108.0 kg
[~2024-02-21 14:53] MED LIST changes: +ALBU6.7H14 INH; -ALBU8.5H17 IH; +BUDE10.22 INH; +LACT1CAP26 PO; -NYSPWD TP; -PREG100C55 PO; +PREG100C56 PO
[2024-02-21 15:46] LABS: BASOPHILS % (AUTO) 0.5 % (0-1); EOSINOPHILS # (AUTO) 0.2 X10'3 (0-0.9); EOSINOPHILS % (AUTO) 1.9 % (0-6); HEMATOCRIT 40.1 % (35.0-45.0); HEMOGLOBIN 12.6 g/dl (12.0-16.0); INR 0.9 INR; LYMPHOCYTES # (AUTO) 0.7 X10'3 (1.1-4.8); LYMPHOCYTES % (AUTO) 6.6 % (21-51); MEAN CORPUSCULAR HEMOGLOBIN 31.1 PG (27.0-31.0); MEAN CORPUSCULAR HGB CONC 31.4 g/dL (33.0-36.5); MEAN CORPUSCULAR VOLUME 99.2 FL (78-98); MEAN PLATELET VOLUME 9.8 FL (7.4-10.4); MONOCYTES # (AUTO) 0.7 X10'3 (0-0.9); MONOCYTES % (AUTO) 7.5 % (2-12); NEUTROPHILS # (AUTO) 8.3 X10'3 (1.8-7.7); NEUTROPHILS % (AUTO) 83.5 % (42-75); PLATELET COUNT 175 X10'3 (140-440); PROTHROMBIN TIME 10.1 SECONDS (9.0-12.0); RED BLOOD COUNT 4.04 X10'6 (4.20-5.60); RED CELL DISTRIBUTION WIDTH 16.2 % (11.5-14.5)
[2024-02-21 15:58] LABS: ALANINE AMINOTRANSFERASE 13 U/L (12-78); ALBUMIN 2.8 G/DL (3.4-5.0); ALKALINE PHOSPHATASE 73 IU/L (46-116); ANION GAP 10 (8-16); ASPARTATE AMINO TRANSFERASE 10 U/L (10-37); BILIRUBIN,TOTAL 0.3 MG/DL (0.1-1.0); BLOOD UREA NITROGEN 55 MG/DL (7-18); BUN/CREATININE RATIO 14.3 (10.0-20.0); CHLORIDE 108 MMOL/L (99-107); CREATININE 3.84 MG/DL (0.40-0.90); GLUCOSE 128 MG/DL (70-104); PRO BRAIN NATRIURETIC PEPTIDE 3053 PG/ML (0-125); SODIUM 135 MMOL/L (135-145); TOTAL CARBON DIOXIDE 17.3 MMOL/L (24-32); TOTAL PROTEIN 5.7 G/DL (6.4-8.2); eCRCL 19 ML/MIN; eGFR 12 ML/MIN
[2024-02-21 15:59] LABS: BILIRUBIN,URINE NEGATIVE (Neg); CLARITY,URINE SLIGHTLY CLOUDY (Clear); COLOR,URINE YELLOW (Yellow); GLUCOSE, URINE NEGATIVE (Neg); KETONES,URINE NEGATIVE (Neg); LEUKOCYTE ESTERASE ,URINE TRACE (Neg); NITRITES, URINE POSITIVE (Neg); OCCULT BLOOD,URINE NEGATIVE (Neg); PH,URINE 5.5 (4.8-8.0); PROTEIN,URINE NEGATIVE (Neg); UROBILINOGEN,URINE 0.2 E.U/dL (0.2-1.0)
[2024-02-21 16:02] LABS: POTASSIUM 6.9 MMOL/L (3.5-5.1)
[2024-02-21 16:08] LABS: URINE AMPHETAMINE SCREEN NEGATIVE (Neg); URINE BARBITUATE SCREEN NEGATIVE (Neg); URINE BENZODIAZEPINES SCREEN NEGATIVE (Neg); URINE CANNABINOID SCREEN NEGATIVE (Neg); URINE COCAINE SCREEN NEGATIVE (Neg); URINE METHADONE SCREEN NEGATIVE (Neg); URINE PHENCYCLIDINE SCREEN NEGATIVE (Neg)
[2024-02-21] MEDS: normal saline 1000ml 1,000 ML IV ONE ×3 (16:09→19:22)
[2024-02-21 16:10] LABS: URINE HCG NEGATIVE (NEG)
[2024-02-21] MEDS ORDERED: SODIUM ZIRCONIUM CYCLOSILICATE 10 GM POWD.PACK PO SCH (16:10)
[2024-02-21 16:13] LABS: UA COLLECTION TYPE FOLEY CATH
[2024-02-21] MEDS ORDERED: calcium gluconate inj. 1 GM in normal saline 100ml IV soln 100 ML IV ONE (16:15)
[2024-02-21 16:32] LABS: BACTERIA,URINE 2+ /HPF (Neg); RBC,URINE NONE SEEN /HPF (0-2)
[2024-02-21 16:33] LABS: SQUAMOUS EPITHELIAL CELL,UR FEW /LPF (FEW)
[2024-02-21] MEDS: dextrose 50%-water 50ml dispensing syringe IV ONE ×2 (16:34→19:15)
[2024-02-21] MEDS: CALCIUM GLUC 1gm/50ml NACL,iso 100 ML IV ONE (16:34)
[2024-02-21] MEDS: albuterol 2.5 MG/3 ML nebule CONTNEB PRN (16:37)
[2024-02-21 16:38] VITALS: PULSE 98; RESP 16; O2SAT 98
[2024-02-21] MEDS ORDERED: acetaminophen 650mg rectal suppository RC PRN (16:45)
[2024-02-21] MEDS ORDERED: ondansetron 4mg rapidly disintigrating tab PO PRN (16:45)
[2024-02-21] MEDS ORDERED: diphenhydrAMINE 50 mg/ml inj IV PRN (16:45)
[2024-02-21] MEDS ORDERED: ondansetron/PF 4mg/2ml inj IV PRN (16:45)
[2024-02-21] MEDS ORDERED: acetaminophen 325mg tablet PO PRN (16:45)
[2024-02-21] MEDS ORDERED: diphenhydrAMINE 25mg capsule PO PRN (16:45)
[2024-02-21] MEDS ORDERED: mag hydrox/Alum hydrox/simeth 30ml oral suspension PO PRN (16:45)
[2024-02-21] MEDS: insulin regular, human U-100 3ml vial - multi-dose IV ONE (16:48)
[2024-02-21] MEDS: clotrimazole topical cream 15gm tube TP ONE (16:49)
[2024-02-21] MEDS: SODIUM ZIRCONIUM CYCLOSILICATE 10 GM POWD.PACK PO ONE (16:52)
[2024-02-21] MEDS ORDERED: dextrose 50%-water 50ml dispensing syringe IV PRN ×4 (17:25→21:05)
[2024-02-21] MEDS ORDERED: glucagon, human recombinant 1mg kit SUBCUT PRN ×2 (17:25→21:05)
[2024-02-21] MEDS ORDERED: DEXTROSE 15 GM of carb/4 tabs (each vial/BOTTLE has 4 tablets) PO PRN ×4 (17:25→21:05)
[2024-02-21] MEDS: normal saline 1000ml 1,000 ML IV SCH (17:26)
[2024-02-21] MEDS: CefTRIAXone/D5W-Rocephin 1gm 50 ML IV ONE (17:26)
[2024-02-21 17:31] VITALS: PULSE 80; RESP 16; O2SAT 96
[2024-02-21 17:39] LABS: ALBUMIN 2.9 G/DL (3.4-5.0); ANION GAP 10 (8-16); BLOOD UREA NITROGEN 54 MG/DL (7-18); BUN/CREATININE RATIO 13.9 (10.0-20.0); CALCIUM 7.8 MG/DL (8.5-10.1); CHLORIDE 108 MMOL/L (99-107); CREATININE 3.88 MG/DL (0.40-0.90); GLUCOSE 131 MG/DL (70-104); PHOSPHORUS 5.8 MG/DL (2.3-4.5); SODIUM 137 MMOL/L (135-145); eCRCL 18 ML/MIN; eGFR 12 ML/MIN
[2024-02-21 17:40] LABS: POTASSIUM 7.1 MMOL/L (3.5-5.1)
[2024-02-21] MEDS ORDERED: CALCIUM GLUC 1gm/50ml NACL,iso 50 ML IV PRN (17:45)
[2024-02-21 18:00] LABS: APTT 29 SECONDS (22-32)
[2024-02-21 18:05] LABS: HEMOGLOBIN A1C 5.6 % (4.5-6.2)
[2024-02-21 18:19] LABS: ETHANOL < 10 MG/DL (<10); LIPASE 32 U/L (16-77)
[2024-02-21] MEDS: sodium polystyrene sulfonate 15gm/60ml oral suspension PO ONE (19:14)
[2024-02-21] MEDS: insulin regular, human 10 units/0.1 ml syringe IV ONE (19:16)
[2024-02-21] MEDS: sodium bicarbonate (8.4%) 1 mEq/ml syringe IV ONE (19:18)
[2024-02-21] MEDS: HYDROmorphone inj. 0.5 MG/0.5 ML DISP.SYRIN IV ONE ×2 (19:37→20:44)
[2024-02-21 22:05] VITALS: BP 103/51; PULSE 83; RESP 20; TEMP 97.9; O2SAT 97
[2024-02-21] MEDS: temazepam 15mg capsule PO PRN (22:45)
[2024-02-22] VITALS (7 sets, daily range): BP systolic 101–113; BP diastolic 52–70; PULSE 78–95; RESP 10–20; TEMP 96.6–99; O2SAT 95–99
[2024-02-22] MEDS: HYDROmorphone 1 mg/ml syringe IV PRN (03:50)
[2024-02-22] MEDS: INSULIN LISPRO 100 UNIT/ML INSULN.PEN MULTI-DOSE SQ SCH ×3 (07:00→09:00)
[2024-02-22 07:02] LABS: BASOPHILS % (AUTO) 0.5 % (0-1); EOSINOPHILS % (AUTO) 0.5 % (0-6); HEMATOCRIT 36.2 % (35.0-45.0); HEMOGLOBIN 11.5 g/dl (12.0-16.0); LYMPHOCYTES # (AUTO) 0.1 X10'3 (1.1-4.8); LYMPHOCYTES % (AUTO) 2.1 % (21-51); MEAN CORPUSCULAR HEMOGLOBIN 31.5 PG (27.0-31.0); MEAN CORPUSCULAR HGB CONC 31.9 g/dL (33.0-36.5); MEAN CORPUSCULAR VOLUME 98.9 FL (78-98); MEAN PLATELET VOLUME 9.9 FL (7.4-10.4); MONOCYTES # (AUTO) 0.3 X10'3 (0-0.9); NEUTROPHILS # (AUTO) 6.6 X10'3 (1.8-7.7); NEUTROPHILS % (AUTO) 92.9 % (42-75); PLATELET COUNT 144 X10'3 (140-440); RED BLOOD COUNT 3.66 X10'6 (4.20-5.60); RED CELL DISTRIBUTION WIDTH 15.7 % (11.5-14.5); WHITE BLOOD COUNT 7.1 X10'3 (4.5-11.0)
[2024-02-22] MEDS: docusate sod 100mg capsule PO SCH (08:00)
[2024-02-22 09:54] LABS: ALANINE AMINOTRANSFERASE 8 U/L (12-78); ALBUMIN 2.7 G/DL (3.4-5.0); ALBUMIN/GLOBULIN RATIO 0.8 (1.1-1.5); ALKALINE PHOSPHATASE 71 IU/L (46-116); ANION GAP 9 (8-16); ASPARTATE AMINO TRANSFERASE 7 U/L (10-37); BILIRUBIN,TOTAL 0.2 MG/DL (0.1-1.0); BLOOD UREA NITROGEN 50 MG/DL (7-18); BUN/CREATININE RATIO 14.3 (10.0-20.0); CALCIUM 7.7 MG/DL (8.5-10.1); CHLORIDE 115 MMOL/L (99-107); CHOL/HDL RATIO 1.6 (0.00-4.99); CHOLESTEROL 86 MG/DL (0-200); CREATININE 3.49 MG/DL (0.40-0.90); GLUCOSE 150 MG/DL (70-104); HDL CHOLESTEROL 55 MG/DL (35-60); LDL CHOLESTEROL 25 MG/DL (50-100); PHOSPHORUS 5.4 MG/DL (2.3-4.5); POTASSIUM 5.9 MMOL/L (3.5-5.1); SODIUM 144 MMOL/L (135-145); TOTAL CARBON DIOXIDE 19.7 MMOL/L (24-32); TOTAL PROTEIN 5.9 G/DL (6.4-8.2); TRIGLYCERIDES 83 MG/DL (20-135); eCRCL 20 ML/MIN; eGFR 14 ML/MIN
[2024-02-22] MEDS: sodium polystyrene sulfonate 15gm/60ml oral suspension PO ONE (11:00)
[2024-02-22] MEDS ORDERED: CALCIUM GLUC 1gm/50ml NACL,iso 50 ML IV PRN (11:00)
[2024-02-22] MEDS: PATIROMER CALCIUM SORBITEX 8.4 GM POWD.PACK PO ONE (11:00)
[2024-02-22] MEDS: HYDROcodone/acetaminophen 10/325mg tab PO PRN (11:18)
[2024-02-22] MEDS: albuterol 2.5 MG/3 ML nebule CONTNEB ONE (11:25)
[2024-02-22] MEDS: CefTRIAXone/D5W-Rocephin 1gm 50 ML IV SCH (12:10)
[2024-02-22] MEDS: SODIUM ZIRCONIUM CYCLOSILICATE 10 GM POWD.PACK PO SCH (13:00)
[2024-02-22] MEDS: dextrose 50%-water 50ml dispensing syringe IV ONE (13:12)
[2024-02-22] MEDS: sodium bicarbonate (8.4%) 1 mEq/ml syringe IV ONE (13:12)
[2024-02-22] MEDS: insulin regular, human 10 units/0.1 ml syringe IV ONE (13:12)
[2024-02-22] MEDS: sodium bicarbonate 1meq/ml inj 150 ML in dextrose 5%-water 1,000 ML IV SCH (14:42)
[2024-02-22 18:11] LABS: ALBUMIN 2.6 G/DL (3.4-5.0); ANION GAP 11 (8-16); BLOOD UREA NITROGEN 47 MG/DL (7-18); BUN/CREATININE RATIO 14.3 (10.0-20.0); CALCIUM 7.7 MG/DL (8.5-10.1); CHLORIDE 112 MMOL/L (99-107); CREATININE 3.28 MG/DL (0.40-0.90); GLUCOSE 107 MG/DL (70-104); POTASSIUM 4.8 MMOL/L (3.5-5.1); SODIUM 143 MMOL/L (135-145); TOTAL CARBON DIOXIDE 20.4 MMOL/L (24-32); eCRCL 22 ML/MIN; eGFR 15 ML/MIN
[2024-02-22] MEDS ORDERED: insulin glargine (Lantus) pen - multi-dose SQ SCH (21:00)
[2024-02-23] VITALS (8 sets, daily range): BP systolic 112–140; BP diastolic 53–71; PULSE 84–105; RESP 12–19; TEMP 97.2–97.9; O2SAT 92–99
[2024-02-23 07:08] LABS: BASOPHILS % (AUTO) 0.5 % (0-1); EOSINOPHILS % (AUTO) 0.5 % (0-6); HEMATOCRIT 31.8 % (35.0-45.0); HEMOGLOBIN 10.4 g/dl (12.0-16.0); LYMPHOCYTES % (AUTO) 15.5 % (21-51); MEAN CORPUSCULAR HEMOGLOBIN 31.9 PG (27.0-31.0); MEAN CORPUSCULAR HGB CONC 32.7 g/dL (33.0-36.5); MEAN CORPUSCULAR VOLUME 97.6 FL (78-98); MEAN PLATELET VOLUME 9.7 FL (7.4-10.4); MONOCYTES # (AUTO) 0.6 X10'3 (0-0.9); MONOCYTES % (AUTO) 10.1 % (2-12); NEUTROPHILS # (AUTO) 4.5 X10'3 (1.8-7.7); NEUTROPHILS % (AUTO) 73.4 % (42-75); PLATELET COUNT 113 X10'3 (140-440); RED BLOOD COUNT 3.25 X10'6 (4.20-5.60); RED CELL DISTRIBUTION WIDTH 16.1 % (11.5-14.5); WHITE BLOOD COUNT 6.2 X10'3 (4.5-11.0)
[2024-02-23 07:28] LABS: ALANINE AMINOTRANSFERASE 9 U/L (12-78); ALBUMIN 2.2 G/DL (3.4-5.0); ALBUMIN/GLOBULIN RATIO 0.7 (1.1-1.5); ALKALINE PHOSPHATASE 57 IU/L (46-116); ANION GAP 6 (8-16); ASPARTATE AMINO TRANSFERASE 10 U/L (10-37); BILIRUBIN,TOTAL 0.2 MG/DL (0.1-1.0); BLOOD UREA NITROGEN 43 MG/DL (7-18); BUN/CREATININE RATIO 15.5 (10.0-20.0); CALCIUM 7.4 MG/DL (8.5-10.1); CHLORIDE 112 MMOL/L (99-107); CREATININE 2.77 MG/DL (0.40-0.90); GLUCOSE 126 MG/DL (70-104); MAGNESIUM 1.6 MG/DL (1.5-2.4); PHOSPHORUS 4.5 MG/DL (2.3-4.5); POTASSIUM 4.5 MMOL/L (3.5-5.1); SODIUM 141 MMOL/L (135-145); TOTAL CARBON DIOXIDE 22.6 MMOL/L (24-32); TOTAL PROTEIN 5.2 G/DL (6.4-8.2); eCRCL 26 ML/MIN; eGFR 18 ML/MIN
[2024-02-23] MEDS ORDERED: baclofen 10mg tablet PO PRN (16:05)
[2024-02-23] MEDS: acetaminophen 325mg tablet PO PRN (17:49)
[2024-02-23] MEDS: (Budesonide/Formoterol Fumarate (Symbicort 80-4.5 Mcg Inhaler) IH SCH (20:00)
[2024-02-23] MEDS: DESIPRAMINE PO SCH (20:00)
[2024-02-23] MEDS: albuterol 2.5 MG/3 ML nebule NEB SCH (20:00)
[2024-02-23] MEDS: famotidine 20mg tablet PO SCH (21:12)
[2024-02-23] MEDS: nystatin 15 GM powder TP SCH (21:12)
[2024-02-23] MEDS: HYDROcodone/acetaminophen 10/325mg tab PO PRN (21:13)
[2024-02-23] MEDS: pregabalin 25mg capsule PO SCH (21:14)
[2024-02-23] MEDS: busPIRone 15mg tablet PO SCH (21:23)
[2024-02-24] VITALS (8 sets, daily range): BP systolic 94–110; BP diastolic 48–61; PULSE 68–102; RESP 11–18; TEMP 97–98.3; O2SAT 90–94
[2024-02-24] MEDS: heparin, porcine 5000 units/ml vial SQ SCH (01:10)
[2024-02-24 06:02] LABS: BASOPHILS % (AUTO) 0.6 % (0-1); EOSINOPHILS # (AUTO) 0.1 X10'3 (0-0.9); EOSINOPHILS % (AUTO) 1.7 % (0-6); HEMATOCRIT 30.3 % (35.0-45.0); HEMOGLOBIN 9.8 g/dl (12.0-16.0); LYMPHOCYTES # (AUTO) 1.2 X10'3 (1.1-4.8); LYMPHOCYTES % (AUTO) 15.9 % (21-51); MEAN CORPUSCULAR HEMOGLOBIN 31.4 PG (27.0-31.0); MEAN CORPUSCULAR HGB CONC 32.4 g/dL (33.0-36.5); MEAN PLATELET VOLUME 9.6 FL (7.4-10.4); MONOCYTES # (AUTO) 0.6 X10'3 (0-0.9); MONOCYTES % (AUTO) 8.6 % (2-12); NEUTROPHILS # (AUTO) 5.3 X10'3 (1.8-7.7); NEUTROPHILS % (AUTO) 73.2 % (42-75); PLATELET COUNT 110 X10'3 (140-440); RED BLOOD COUNT 3.12 X10'6 (4.20-5.60); RED CELL DISTRIBUTION WIDTH 15.5 % (11.5-14.5); WHITE BLOOD COUNT 7.3 X10'3 (4.5-11.0)
[2024-02-24 06:14] LABS: ALANINE AMINOTRANSFERASE 10 U/L (12-78); ALBUMIN 2.3 G/DL (3.4-5.0); ALBUMIN/GLOBULIN RATIO 0.7 (1.1-1.5); ALKALINE PHOSPHATASE 63 IU/L (46-116); ANION GAP 6 (8-16); ASPARTATE AMINO TRANSFERASE 13 U/L (10-37); BILIRUBIN,TOTAL 0.2 MG/DL (0.1-1.0); BLOOD UREA NITROGEN 36 MG/DL (7-18); BUN/CREATININE RATIO 16.8 (10.0-20.0); CALCIUM 7.6 MG/DL (8.5-10.1); CHLORIDE 105 MMOL/L (99-107); CREATININE 2.14 MG/DL (0.40-0.90); GLUCOSE 125 MG/DL (70-104); MAGNESIUM 1.5 MG/DL (1.5-2.4); PHOSPHORUS 3.8 MG/DL (2.3-4.5); POTASSIUM 3.5 MMOL/L (3.5-5.1); SODIUM 138 MMOL/L (135-145); TOTAL CARBON DIOXIDE 27.4 MMOL/L (24-32); TOTAL PROTEIN 5.4 G/DL (6.4-8.2); eCRCL 33 ML/MIN; eGFR 24 ML/MIN
[2024-02-24] MEDS: TIOTROPIUM BROMIDE 18 MCG IH SCH (08:00)
[2024-02-24] MEDS: duloxetine 30mg CAPSULE.DR PO SCH (08:32)
[2024-02-24] MEDS: metoprolol succinate 25mg (24-HOUR) SR. Tablet PO SCH (08:34)
[2024-02-24] MEDS: levoTHYROXINE 100mcg tablet PO SCH (08:35)
[2024-02-24] MEDS: atorvastatin 20mg tablet PO SCH (08:37)
[2024-02-24] MEDS: magnesium hydroxide 30ml (MOM) UD suspension PO PRN (20:26)
[2024-02-24] MEDS: HYDROcodone/acetaminophen 5mg/325mg tablet PO PRN (22:53)
[2024-02-25] VITALS (9 sets, daily range): BP systolic 104–117; BP diastolic 52–74; PULSE 70–81; RESP 12–18; TEMP 97.7–98.5; O2SAT 90–98
[2024-02-25] MEDS ORDERED: ipratropium/albuterol 3ml nebule NEB SCH (00:02)
[2024-02-25] MEDS: ipratropium/albuterol 3ml nebule NEB SCH (02:55)
[2024-02-25] MEDS ORDERED: albuterol 2.5 MG/3 ML nebule NEB PRN (03:00)
[2024-02-25] MEDS: bisacodyl 10mg suppository rectal RC PRN (05:16)
[2024-02-25 06:58] LABS: BASOPHILS % (AUTO) 0.3 % (0-1); EOSINOPHILS # (AUTO) 0.1 X10'3 (0-0.9); EOSINOPHILS % (AUTO) 1.6 % (0-6); HEMATOCRIT 27.8 % (35.0-45.0); HEMOGLOBIN 9.1 g/dl (12.0-16.0); LYMPHOCYTES # (AUTO) 0.8 X10'3 (1.1-4.8); LYMPHOCYTES % (AUTO) 14.3 % (21-51); MEAN CORPUSCULAR HEMOGLOBIN 31.4 PG (27.0-31.0); MEAN CORPUSCULAR HGB CONC 32.6 g/dL (33.0-36.5); MEAN CORPUSCULAR VOLUME 96.2 FL (78-98); MEAN PLATELET VOLUME 9.8 FL (7.4-10.4); MONOCYTES # (AUTO) 0.6 X10'3 (0-0.9); MONOCYTES % (AUTO) 10.2 % (2-12); NEUTROPHILS # (AUTO) 4.2 X10'3 (1.8-7.7); NEUTROPHILS % (AUTO) 73.6 % (42-75); PLATELET COUNT 109 X10'3 (140-440); RED BLOOD COUNT 2.89 X10'6 (4.20-5.60); RED CELL DISTRIBUTION WIDTH 15.8 % (11.5-14.5); WHITE BLOOD COUNT 5.7 X10'3 (4.5-11.0)
[2024-02-25 07:09] LABS: ALANINE AMINOTRANSFERASE 14 U/L (12-78); ALBUMIN 2.1 G/DL (3.4-5.0); ALBUMIN/GLOBULIN RATIO 0.7 (1.1-1.5); ALKALINE PHOSPHATASE 67 IU/L (46-116); ANION GAP 7 (8-16); ASPARTATE AMINO TRANSFERASE 14 U/L (10-37); BILIRUBIN,TOTAL 0.2 MG/DL (0.1-1.0); BLOOD UREA NITROGEN 34 MG/DL (7-18); BUN/CREATININE RATIO 16.7 (10.0-20.0); CALCIUM 7.8 MG/DL (8.5-10.1); CHLORIDE 105 MMOL/L (99-107); CREATININE 2.04 MG/DL (0.40-0.90); GLUCOSE 136 MG/DL (70-104); MAGNESIUM 1.7 MG/DL (1.5-2.4); PHOSPHORUS 4.3 MG/DL (2.3-4.5); POTASSIUM 3.5 MMOL/L (3.5-5.1); SODIUM 139 MMOL/L (135-145); TOTAL CARBON DIOXIDE 26.8 MMOL/L (24-32); TOTAL PROTEIN 5.3 G/DL (6.4-8.2); eCRCL 35 ML/MIN; eGFR 26 ML/MIN
[2024-02-25] MEDS: famotidine 20mg tablet PO SCH (07:14)
[2024-02-25] MEDS: budesonide 0.5mg/2ml UD nebule IH SCH (07:33)
[2024-02-25] MEDS: levoTHYROXINE 25mcg tablet PO SCH (08:06)
[2024-02-25] MEDS: HYDROmorphone 1 mg/ml syringe IV PRN (11:28)
[2024-02-25] MEDS: metoprolol succinate 25mg (24-HOUR) SR. Tablet PO SCH (11:33)
== END 2024-02-25 17:21 | DRG 342 ==
LOC: ER 14:54 → UNDOADMIN 16:42 → PCU 3S 16:42
PROVIDERS: ADMIT Family Medicine; ATTEND Family Medicine
DX: S82.192A Other fracture of upper end of left tibia, initial encounter for closed fracture (principal); I50.33 Acute on chronic diastolic (congestive) heart failure; E87.29 Other acidosis; D69.6 Thrombocytopenia, unspecified; N17.9 Acute kidney failure, unspecified; I27.29 Other secondary pulmonary hypertension; I13.0 Hypertensive heart and chronic kidney disease with heart failure and stage 1 through stage 4 chronic kidney disease, or unspecified chronic kidney disease; I95.9 Hypotension, unspecified; E88.09 Other disorders of plasma-protein metabolism, not elsewhere classified; I27.81 Cor pulmonale (chronic); J96.10 Chronic respiratory failure, unspecified whether with hypoxia or hypercapnia; E11.22 Type 2 diabetes mellitus with diabetic chronic kidney disease; S82.492A Other fracture of shaft of left fibula, initial encounter for closed fracture; E78.00 Pure hypercholesterolemia, unspecified; W18.39XA Other fall on same level, initial encounter; M81.0 Age-related osteoporosis without current pathological fracture; J43.9 Emphysema, unspecified; N39.0 Urinary tract infection, site not specified; F17.210 Nicotine dependence, cigarettes, uncomplicated; E11.40 Type 2 diabetes mellitus with diabetic neuropathy, unspecified; E11.65 Type 2 diabetes mellitus with hyperglycemia; G89.4 Chronic pain syndrome; F17.200 Nicotine dependence, unspecified, uncomplicated; E87.8 Other disorders of electrolyte and fluid balance, not elsewhere classified; E03.9 Hypothyroidism, unspecified; K21.9 Gastro-esophageal reflux disease without esophagitis; E87.5 Hyperkalemia; F32.A Depression, unspecified; F41.9 Anxiety disorder, unspecified; M54.9 Dorsalgia, unspecified; E86.1 Hypovolemia; N18.30 Chronic kidney disease, stage 3 unspecified; Y93.89 Activity, other specified; Z99.81 Dependence on supplemental oxygen; Z79.84 Long term (current) use of oral hypoglycemic drugs; Z79.899 Other long term (current) drug therapy; Y92.89 Other specified places as the place of occurrence of the external cause; Y99.8 Other external cause status; Z88.0 Allergy status to penicillin; Z88.5 Allergy status to narcotic agent
CPT/HCPCS: 36415; 71045; 73502; 73560; 80048; 80053; 80061; 80305; 80320; 81001; 81025; 82948; 83036; 83690; 83735; 83880; 84100; 84484; 85025; 85610; 85730; 86885; 86900; 86901; 87077; 87081; 87088; 87186; 93005; 93306; 94640; 94760; 96365; 96375; 97161; 97530; 99291; A4314; A4615; A6250; A6446; A6449; A7015; G0378; J0610; J0696; J1170; J1644; J1815; J3490; J7030; J7040; J7070

== ENCOUNTER 2024-06-27 10:02 | Emergency (ER) | payer MEDICAID ==
[~2024-06-27] VITALS: Ht 177.8 cm; Wt 108.0 kg
[~2024-06-27 10:02] MED LIST changes: -LACT1CAP26 PO
[2024-06-27 10:09] VITALS: TEMP 98.1
[2024-06-27 11:00] LABS: BASOPHILS % (AUTO) 0.5 % (0-1); EOSINOPHILS # (AUTO) 0.1 X10'3 (0-0.9); EOSINOPHILS % (AUTO) 1.2 % (0-6); HEMATOCRIT 33.1 % (35.0-45.0); HEMOGLOBIN 10.5 g/dl (12.0-16.0); LYMPHOCYTES # (AUTO) 0.7 X10'3 (1.1-4.8); LYMPHOCYTES % (AUTO) 7.6 % (21-51); MEAN CORPUSCULAR HEMOGLOBIN 30.3 PG (27.0-31.0); MEAN CORPUSCULAR HGB CONC 31.8 g/dL (33.0-36.5); MEAN CORPUSCULAR VOLUME 95.5 FL (78-98); MEAN PLATELET VOLUME 8.4 FL (7.4-10.4); MONOCYTES # (AUTO) 0.5 X10'3 (0-0.9); MONOCYTES % (AUTO) 6.1 % (2-12); NEUTROPHILS # (AUTO) 7.4 X10'3 (1.8-7.7); NEUTROPHILS % (AUTO) 84.6 % (42-75); PLATELET COUNT 192 X10'3 (140-440); RED BLOOD COUNT 3.47 X10'6 (4.20-5.60); RED CELL DISTRIBUTION WIDTH 15.5 % (11.5-14.5); WHITE BLOOD COUNT 8.7 X10'3 (4.5-11.0)
[2024-06-27 11:03] LABS: ALBUMIN 3.1 G/DL (3.4-5.0); ANION GAP 8 (8-16); BLOOD UREA NITROGEN 30 MG/DL (7-18); BUN/CREATININE RATIO 23.1 (10.0-20.0); CALCIUM 8.4 MG/DL (8.5-10.1); CHLORIDE 106 MMOL/L (99-107); GLUCOSE 133 MG/DL (70-104); POTASSIUM 4.5 MMOL/L (3.5-5.1); SODIUM 142 MMOL/L (135-145); TOTAL CARBON DIOXIDE 28.5 MMOL/L (24-32); eCRCL 54 ML/MIN; eGFR 43 ML/MIN
[2024-06-27] MEDS: normal saline 1000ML IV soln IVB ONE (12:36)
[2024-06-27 14:53] VITALS: BP 134/72; PULSE 74; RESP 16; O2SAT 96
== END 2024-06-27 15:06 | disposition home or self-care (01) ==
LOC: ER 10:03
DX: R25.1 Tremor, unspecified (principal); I11.0 Hypertensive heart disease with heart failure; I50.9 Heart failure, unspecified; E78.00 Pure hypercholesterolemia, unspecified; G89.29 Other chronic pain; K21.9 Gastro-esophageal reflux disease without esophagitis; E11.9 Type 2 diabetes mellitus without complications; E03.9 Hypothyroidism, unspecified; Z88.0 Allergy status to penicillin; Z88.5 Allergy status to narcotic agent; Z79.899 Other long term (current) drug therapy; Z79.84 Long term (current) use of oral hypoglycemic drugs; Z79.2 Long term (current) use of antibiotics
CPT/HCPCS: 36415; 80048; 84145; 85025; 96360; 99283; J7030